=== PATIENT | male | born 1960 | race American Indian/Alaskan Native ===

== ENCOUNTER 2016-12-29 15:01 | Inpatient (IN) | payer MEDICARE, OTHER ==
[2016-12-29 15:01] VITALS: BMI 23.7
[2016-12-29] MEDS ORDERED: Sodium Chloride 0.9% 1,000 ML IV STA (15:16)
--- NOTE | 2016-12-29 15:16 | ED PDOC ---
HPI: Chest Pain Time Seen by Provider: 12/29/16 15:08 Chief Complaint (Nursing): Chest Pain History Per: Patient Onset/Duration Of Symptoms: Hrs (2) Current Symptoms Are (Timing): Still Present Severity: Mild Pain Scale Rating Of: 2 Quality: Aching Associated Symptoms: Dyspnea Exacerbating Factors: Deep Breathing Past Medical History Vital Signs: Last Vital Signs Temp 98.8 F 12/29/16 15:05 Pulse 103 H 12/29/16 15:05 Resp 16 12/29/16 15:05 BP 80/59 L 12/29/16 15:05 Pulse Ox 100 12/29/16 15:37 - Medical History PMH: Diabetes (type II), Gastritis, HTN, Hyperlipidemia, Pneumonia, End Stage Renal Disease, Chronic Kidney Disease (HD m/w/f) Denies: Arthritis, CHF, COPD, HIV, Hypercholesterolemia, Hypothyroidism, Kidney Stones, Rheumatoid Arthritis - Family History Family History: States: Unknown Family Hx - Home Medications Home Medications: Ambulatory Orders Medication Instructions Recorded Amlodipine Besylate [Norvasc] 10 mg PO DAILY #30 tablet 10/16/15 Aspirin [Ecotrin] 81 mg PO DAILY #30 tabec 10/16/15 Esomeprazole Magnesium [Nexium] 40 mg PO DAILY #0 capsule.dr 10/16/15 Insulin Aspart Prot/Insuln Asp 5 unit SC BID #0 vial 10/16/15 [Novolog Mix 70-30 Vial] Labetalol [Trandate] 100 mg PO BID #60 tab 10/16/15 Minoxidil 5 mg PO DAILY #30 tab 10/16/15 Sevelamer Carbonate [Renvela] 2,400 mg PO TID #60 tab 10/16/15 Simvastatin 20 mg PO HS #0 tablet 10/16/15 cloNIDine [Catapres] 0.3 mg PO TID #90 tab 10/16/15 hydrALAZINE [Apresoline] 50 mg PO TID #30 tab 10/16/15 Enalapril Maleate [Vasotec] 20 mg PO BID #0 tab 11/19/15 Acetaminophen with Codeine 1 tab PO QID PRN #15 tab 05/08/16 [Tylenol with Codeine No. 3 300 mg-30 mg] - Allergies Allergies/Adverse Reactions: Allergies Allergy/AdvReac Type Severity Reaction Status Date / Time azithromycin [From Zithromax] Allergy RASH Verified 12/31/16 07:12 tamsulosin [From Flomax] Allergy RASH Verified 12/29/16 15:05 Review of Systems ROS Statement: Except As Marked, All Systems Reviewed And Found Negative Cardiovascular: Positive for: Chest Pain Respiratory: Positive for: Shortness of Breath Physical Exam - Reviewed Nursing Documentation Reviewed: Yes Vital Signs Reviewed: Yes - Physical Exam Appears: Positive for: Non-toxic, No Acute Distress Head Exam: Positive for: ATRAUMATIC, NORMAL INSPECTION, NORMOCEPHALIC Skin: Positive for: Normal Color, Warm, DRY Eye Exam: Positive for: EOMI, Normal appearance, PERRL ENT: Positive for: Normal ENT Inspection Neck: Positive for: Normal, Painless ROM Cardiovascular/Chest: Positive for: Regular Rate, Rhythm Respiratory: Positive for: CNT, Normal Breath Sounds Gastrointestinal/Abdominal: Positive for: Normal Exam, Bowel Sounds, Soft Back: Positive for: Normal Inspection Extremity: Positive for: Normal ROM Neurologic/Psych: Positive for: Alert, Oriented - Laboratory Results Result Diagrams: 12/29/16 15:40 12/29/16 15:40 - ECG ECG Rhythm: Positive for: Sinus Rhythm, ST/T Changes (Inverted T waves V5-6, 1, AVL unchanged from 07/02/2016) O2 Sat by Pulse Oximetry: 100 Disposition - Clinical Impression Clinical Impression: ESRD (end stage renal disease), Chest pain - Patient ED Disposition Is Patient to be Admitted: Yes - Disposition Disposition Time: 18:04 Condition: FAIR - Pt Status Changed To: Hospital Disposition Of: Observation - POA Present On Arrival: None
[2016-12-29 15:45] LABS: BASO % 0.9 % (0.0-2.0); EOS % 0.8 % (0.0-4.0); HEMOGLOBIN 8.6 g/dL (12.0-18.0); LYMPH # 0.8 K/uL (1.0-4.3); LYMPH % 15.5 % (20.0-40.0); MEAN CELL VOLUME 72.1 fl (80.0-94.0); MEAN CORPUSCULAR HEMOGLOBIN 23.9 pg (27.0-31.0); MEAN CORPUSCULAR HGB CONC 33.2 g/dL (33.0-37.0); MEAN PLATELET VOLUME 7.9 fl (7.2-11.7); MONO # 0.8 K/uL (0.0-0.8); MONO % 13.9 % (0.0-10.0); NEUT # 3.7 K/uL (1.8-7.0); NEUT % 68.9 % (50.0-75.0); NRBC % 0.2 % (0.0-0.0); RBC 3.58 Mil/uL (4.40-5.90); RED CELL DISTRIBUTION WIDTH 17.1 % (11.5-14.5); WHITE BLOOD COUNT 5.4 K/uL (4.8-10.8)
[2016-12-29 16:07] LABS: ALB/GLOB RATIO 1.1 (1.0-2.1); ALBUMIN 4.4 g/dL (3.5-5.0); CALCIUM 9.7 mg/dL (8.4-10.2)
--- NOTE | 2016-12-29 16:07 | RAD ---
HISTORY: Cough. COMPARISON: 05/08/2016. FINDINGS: LUNGS: No active pulmonary disease. PLEURA: Stable pleural thickening, blunting of the costophrenic sulci bilaterally. CARDIOVASCULAR: Cardiomegaly. No evidence of acute, significant cardiovascular disease. OSSEOUS STRUCTURES: No significant abnormalities. VISUALIZED UPPER ABDOMEN: Normal. OTHER FINDINGS: None. IMPRESSION: No active disease. No significant interval change compared to the prior examination(s).
[2016-12-29 16:19] LABS: TROPONIN I 0.04 ng/mL (0.00-0.120)
[2016-12-29] MEDS ORDERED: LACTULOSE PO PRN (23:03)
[2016-12-30] MEDS ORDERED: HYDRALAZINE HCL PO SCH (01:00)
[2016-12-30] MEDS: Insulin Lispro (humaLOG) 100 Units/ml Inj SC SCH ×4 (06:37→21:51)
[2016-12-30] MEDS ORDERED: INSULIN ASPART 100 UNIT SQ SCH ×2 (07:30→09:00)
[2016-12-30] MEDS: Enoxaparin 30 mg Syringe SC SCH (08:39)
[2016-12-30] MEDS ORDERED: MENTHOL TD SCH (09:00)
[2016-12-30] MEDS ORDERED: RANOLAZINE PO SCH (09:00)
[2016-12-30] MEDS ORDERED: Insulin Lispro (humaLOG) 100 Units/ml Inj SC SCH (09:00)
--- NOTE | 2016-12-30 10:16 | CP.PCM.HP ---
Past Patient History - Infectious Disease Hx of Infectious Diseases: None - Tetanus Immunizations Tetanus Immunization: Unknown - Past Medical History & Family History Past Medical History?: Yes - Past Social History Smoking Status: Former Smoker - CARDIAC Hx Cardiac Disorders: Yes Hx Congestive Heart Failure: No Hx Hypercholesterolemia: No Hx Hypertension: Yes - PULMONARY Hx Respiratory Disorders: Yes Hx Chronic Obstructive Pulmonary Disease (COPD): No Hx Pneumonia: Yes - NEUROLOGICAL Hx Neurological Disorder: Yes HX Cerebrovascular Accident: Yes (june 2016) - HEENT Hx HEENT Problems: Yes - RENAL Hx Chronic Kidney Disease: Yes Hx Dialysis: Yes Type of Dialysis Access: right AV Date of Last Dialysis Treatment: 12/29/16 Hx Renal Failure: Yes - ENDOCRINE/METABOLIC Hx Endocrine Disorders: Yes Hx Diabetes Mellitus Type 1: Yes Hx Hypothyroidism: No - HEMATOLOGICAL/ONCOLOGICAL Hx Blood Disorders: No Hx Human Immunodeficiency Virus (HIV): No - INTEGUMENTARY Hx Dermatological Problems: No - MUSCULOSKELETAL/RHEUMATOLOGICAL Hx Musculoskeletal Disorders: No Hx Arthritis: No Hx Falls: No - GASTROINTESTINAL Hx Gastrointestinal Disorders: Yes Hx Gastritis: Yes - GENITOURINARY/GYNECOLOGICAL Hx Genitourinary Disorders: No - PSYCHIATRIC Hx Psychophysiologic Disorder: Yes Hx Schizophrenia: Yes Hx Substance Use: No - SURGICAL HISTORY Hx Surgeries: Yes Hx Eye Surgery: Yes (Glaucoma) Other/Comment: Bilateral eyes surgery for glaucoma and cataracts, right arm AV Shunt - ANESTHESIA Hx Anesthesia: Yes Hx Anesthesia Reactions: Yes (Vomiting) Hx Malignant Hyperthermia: No Has any member of the family had a problem w/ anesthesia?: No Meds Allergies/Adverse Reactions: Allergies Allergy/AdvReac Type Severity Reaction Status Date / Time azithromycin [From Zithromax] Allergy RASH Verified 12/29/16 19:41 tamsulosin [From Flomax] Allergy RASH Verified 12/29/16 15:05 Results - Vital Signs Recent Vital Signs: Last Vital Signs Temp 36.8 C 12/30/16 08:13 Pulse 77 12/30/16 09:00 Resp 20 12/30/16 08:13 BP 162/69 H 12/30/16 08:13 Pulse Ox 100 12/30/16 08:13 - Labs Result Diagrams: 12/29/16 15:40 12/29/16 15:40 Labs: Laboratory Results - last 24 hr 12/30/16 12/30/16 05:05 05:32 POC Glucose (mg/dL) 307 H Troponin I 0.9310 H*
--- NOTE | 2016-12-30 10:32 | CP.PCM.CON ---
History of Present Illness - History of Present Illness History of Present Illness: 56 y/o male from [facility], h/o HTN, DM,ESRD on HD X 6 years. H/o cerebral bleed 6 month ago underwent Cath 2 weeks ago at [facility], presented with chest pain Review of Systems - Constitutional Constitutional: Fatigue - Cardiovascular Cardiovascular: Irregular Heart Rhythm - Respiratory Respiratory: Cough Past Patient History - Infectious Disease Hx of Infectious Diseases: None - Tetanus Immunizations Tetanus Immunization: Unknown - Past Medical History & Family History Past Medical History?: Yes - Past Social History Smoking Status: Former Smoker - CARDIAC Hx Cardiac Disorders: Yes Hx Congestive Heart Failure: No Hx Hypercholesterolemia: No Hx Hypertension: Yes - PULMONARY Hx Respiratory Disorders: Yes Hx Chronic Obstructive Pulmonary Disease (COPD): No Hx Pneumonia: Yes - NEUROLOGICAL Hx Neurological Disorder: Yes HX Cerebrovascular Accident: Yes (june 2016) - HEENT Hx HEENT Problems: Yes - RENAL Hx Chronic Kidney Disease: Yes Hx Dialysis: Yes Type of Dialysis Access: right AV Date of Last Dialysis Treatment: 12/29/16 Hx Renal Failure: Yes - ENDOCRINE/METABOLIC Hx Endocrine Disorders: Yes Hx Diabetes Mellitus Type 1: Yes Hx Hypothyroidism: No - HEMATOLOGICAL/ONCOLOGICAL Hx Blood Disorders: No Hx Human Immunodeficiency Virus (HIV): No - INTEGUMENTARY Hx Dermatological Problems: No - MUSCULOSKELETAL/RHEUMATOLOGICAL Hx Musculoskeletal Disorders: No Hx Arthritis: No Hx Falls: No - GASTROINTESTINAL Hx Gastrointestinal Disorders: Yes Hx Gastritis: Yes - GENITOURINARY/GYNECOLOGICAL Hx Genitourinary Disorders: No - PSYCHIATRIC Hx Psychophysiologic Disorder: Yes Hx Schizophrenia: Yes Hx Substance Use: No - SURGICAL HISTORY Hx Surgeries: Yes Hx Eye Surgery: Yes (Glaucoma) Other/Comment: Bilateral eyes surgery for glaucoma and cataracts, right arm AV Shunt - ANESTHESIA Hx Anesthesia: Yes Hx Anesthesia Reactions: Yes (Vomiting) Hx Malignant Hyperthermia: No Has any member of the family had a problem w/ anesthesia?: No Meds Allergies/Adverse Reactions: Allergies Allergy/AdvReac Type Severity Reaction Status Date / Time azithromycin [From Zithromax] Allergy RASH Verified 12/29/16 19:41 tamsulosin [From Flomax] Allergy RASH Verified 12/29/16 15:05 - Medications Medications: Current Medications Acetaminophen (Tylenol 325mg Tab) 650 mg PO Q4 PRN PRN Reason: Fever >100.4 F Acetaminophen (Tylenol 325mg Tab) 650 mg PO Q4 PRN PRN Reason: Pain, Mild (1-3) Atorvastatin Calcium (Lipitor) 20 mg PO DAILY [facility] Last Admin: 12/30/16 08:38 Dose: 20 mg Bisacodyl (Dulcolax) 10 mg NE HS PRN PRN Reason: Constipation Calcitriol (Rocaltrol) 0.25 mcg PO DAILY [facility] Last Admin: 12/30/16 08:38 Dose: 0.25 mcg Clonidine HCl (Catapres-Tts3 0.3 Mg/24 Hr) 1 patch TD QWK [facility] Docusate Sodium (Colace) 200 mg PO HS [facility] Enoxaparin Sodium (Lovenox) 30 mg SC DAILY [facility] PRN Reason: Protocol Last Admin: 12/30/16 08:39 Dose: 30 mg Ferrous Sulfate (Feosol) 325 mg PO DAILY [facility] Last Admin: 12/30/16 08:38 Dose: 325 mg Hydralazine HCl (Apresoline) 100 mg PO Q8H [facility] Last Admin: 12/30/16 06:46 Dose: 100 mg Insulin Human Lispro (Humalog) 0 units SC TTS@TID [facility] Insulin Human Lispro (Humalog) 0 units SC [email or web address]@[facility] Last Admin: 12/30/16 06:37 Dose: 8 unit Insulin Human Lispro (Humalog) 0 units SC SUN@[facility] Isosorbide Mononitrate (Imdur) 30 mg PO DAILY [facility] Last Admin: 12/30/16 08:38 Dose: 30 mg Lactulose (Enulose) 20 gm PO DAILY PRN PRN Reason: Constipation Last Admin: 12/30/16 08:59 Dose: 20 gm Physical Exam - Constitutional Appears: Well - Head Exam Head Exam: NORMAL INSPECTION - Eye Exam Additional comments: legally blind - Neck Exam Neck exam: Positive for: Normal Inspection - Respiratory Exam Respiratory Exam: NORMAL BREATHING PATTERN - Cardiovascular Exam Cardiovascular Exam: REGULAR RHYTHM Additional comments: Grade3/6 ESM over LSB - Extremities Exam Extremities exam: Positive for: pedal edema Results - Vital Signs Recent Vital Signs: Last Vital Signs Temp 98.3 F 12/30/16 08:13 Pulse 77 12/30/16 09:00 Resp 20 12/30/16 08:13 BP 162/69 H 12/30/16 08:13 Pulse Ox 100 12/30/16 08:13 - Labs Result Diagrams: 12/29/16 15:40 12/29/16 15:40 Labs: Laboratory Results - last 24 hr 12/30/16 12/30/16 05:05 05:32 POC Glucose (mg/dL) 307 H Troponin I 0.9310 H* Assessment & Plan - Assessment and Plan (Free Text) Assessment: Chest pain R/O [place] ESRD 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 HTN cont Acetaminophen (Tylenol 325mg Tab) 650 mg PO Q4 PRN PRN Reason: Fever >100.4 F Acetaminophen (Tylenol 325mg Tab) 650 mg PO Q4 PRN PRN Reason: Pain, Mild (1-3) Atorvastatin Calcium (Lipitor) 20 mg PO DAILY [facility] Last Admin: 12/30/16 08:38 Dose: 20 mg Bisacodyl (Dulcolax) 10 mg NE HS PRN PRN Reason: Constipation Calcitriol (Rocaltrol) 0.25 mcg PO DAILY [facility] Last Admin: 12/30/16 08:38 Dose: 0.25 mcg Clonidine HCl (Catapres-Tts3 0.3 Mg/24 Hr) 1 patch TD QWK [facility] Docusate Sodium (Colace) 200 mg PO HS [facility] Enoxaparin Sodium (Lovenox) 30 mg SC DAILY [facility] PRN Reason: Protocol Last Admin: 12/30/16 08:39 Dose: 30 mg Ferrous Sulfate (Feosol) 325 mg PO DAILY [facility] Last Admin: 12/30/16 08:38 Dose: 325 mg Hydralazine HCl (Apresoline) 100 mg PO Q8H [facility] Last Admin: 12/30/16 06:46 Dose: 100 mg Insulin Human Lispro (Humalog) 0 units SC TTS@TID [facility] Insulin Human Lispro (Humalog) 0 units SC MWF@[facility] Last Admin: 12/30/16 06:37 Dose: 8 unit Insulin Human Lispro (Humalog) 0 units SC SUN@[facility] Isosorbide Mononitrate (Imdur) 30 mg PO DAILY [facility] Last Admin: 12/30/16 08:38 Dose: 30 mg Lactulose (Enulose) 20 gm PO DAILY PRN PRN Reason: Constipation Last Admin: 12/30/16 08:59 Dose: 20 gm Start ASA, Plavix, Lopressor Head CT scan, Echo, Cath report from Rick
--- NOTE | 2016-12-30 11:04 | CP.PCM.CON ---
History of Present Illness - History of Present Illness History of Present Illness: Patient who is 56 years of age known to our practice with end stage renal disease on maintenance hemodialysis 3 times a week TTS. He was having dialysis yesterday as outpatient when he developed atypical chest pain and he was sent to the emergency room for further evaluation. Patient known with multiple medical problem he used to have multiple admission he had in the past. Patient lives in [facility] PMH: Diabetes (type II), Gastritis, HTN, Hyperlipidemia, Pneumonia, End Stage Renal Disease, Chronic Kidney Disease (HD m/w/f) Denies: Arthritis, CHF, COPD, HIV, Hypercholesterolemia, Hypothyroidism, Kidney Stones, Rheumatoid Arthritis? I believe the patient is legally blind he can not see well Review of Systems - Constitutional Constitutional: Weakness. absent: Chills, Excessive Sweating - Cardiovascular Cardiovascular: Chest Pain. absent: Dyspnea, Leg Edema - Respiratory Respiratory: absent: Dyspnea, Hemoptysis - Gastrointestinal Gastrointestinal: absent: Abdominal Pain - Musculoskeletal Musculoskeletal: Muscle Weakness - Integumentary Integumentary: As Per HPI - Neurological Neurological: Abnormal Gait - Psychiatric Psychiatric: As Per HPI Past Patient History - Infectious Disease Hx of Infectious Diseases: None - Tetanus Immunizations Tetanus Immunization: Unknown - Past Medical History & Family History Past Medical History?: Yes - Past Social History Smoking Status: Former Smoker - CARDIAC Hx Cardiac Disorders: Yes Hx Congestive Heart Failure: No Hx Hypercholesterolemia: No Hx Hypertension: Yes - PULMONARY Hx Respiratory Disorders: Yes Hx Chronic Obstructive Pulmonary Disease (COPD): No Hx Pneumonia: Yes - NEUROLOGICAL Hx Neurological Disorder: Yes HX Cerebrovascular Accident: Yes (june 2016) - HEENT Hx HEENT Problems: Yes - RENAL Hx Chronic Kidney Disease: Yes Hx Dialysis: Yes Type of Dialysis Access: right AV Date of Last Dialysis Treatment: 12/29/16 Hx Renal Failure: Yes - ENDOCRINE/METABOLIC Hx Endocrine Disorders: Yes Hx Diabetes Mellitus Type 1: Yes Hx Hypothyroidism: No - HEMATOLOGICAL/ONCOLOGICAL Hx Blood Disorders: No Hx Human Immunodeficiency Virus (HIV): No - INTEGUMENTARY Hx Dermatological Problems: No - MUSCULOSKELETAL/RHEUMATOLOGICAL Hx Musculoskeletal Disorders: No Hx Arthritis: No Hx Falls: No - GASTROINTESTINAL Hx Gastrointestinal Disorders: Yes Hx Gastritis: Yes - GENITOURINARY/GYNECOLOGICAL Hx Genitourinary Disorders: No - PSYCHIATRIC Hx Psychophysiologic Disorder: Yes Hx Schizophrenia: Yes Hx Substance Use: No - SURGICAL HISTORY Hx Surgeries: Yes Hx Eye Surgery: Yes (Glaucoma) Other/Comment: Bilateral eyes surgery for glaucoma and cataracts, right arm AV Shunt - ANESTHESIA Hx Anesthesia: Yes Hx Anesthesia Reactions: Yes (Vomiting) Hx Malignant Hyperthermia: No Has any member of the family had a problem w/ anesthesia?: No Meds Allergies/Adverse Reactions: Allergies Allergy/AdvReac Type Severity Reaction Status Date / Time azithromycin [From Zithromax] Allergy RASH Verified 12/29/16 19:41 tamsulosin [From Flomax] Allergy RASH Verified 12/29/16 15:05 - Medications Medications: Current Medications Acetaminophen (Tylenol 325mg Tab) 650 mg PO Q4 PRN PRN Reason: Fever >100.4 F Acetaminophen (Tylenol 325mg Tab) 650 mg PO Q4 PRN PRN Reason: Pain, Mild (1-3) Aspirin (Aspirin Chewable) 81 mg PO DAILY [facility] Atorvastatin Calcium (Lipitor) 20 mg PO DAILY [facility] Last Admin: 12/30/16 08:38 Dose: 20 mg Bisacodyl (Dulcolax) 10 mg IN HS PRN PRN Reason: Constipation Calcitriol (Rocaltrol) 0.25 mcg PO DAILY [facility] Last Admin: 12/30/16 08:38 Dose: 0.25 mcg Clonidine HCl (Catapres-Tts3 0.3 Mg/24 Hr) 1 patch TD QWK [facility] Clopidogrel Bisulfate (Plavix) 75 mg PO DAILY [facility] Docusate Sodium (Colace) 200 mg PO HS [facility] Enoxaparin Sodium (Lovenox) 30 mg SC DAILY [facility] PRN Reason: Protocol Last Admin: 12/30/16 08:39 Dose: 30 mg Ferrous Sulfate (Feosol) 325 mg PO DAILY [facility] Last Admin: 12/30/16 08:38 Dose: 325 mg Hydralazine HCl (Apresoline) 100 mg PO Q8H [facility] Last Admin: 12/30/16 06:46 Dose: 100 mg Insulin Human Lispro (Humalog) 0 units SC TTS@TID [facility] Insulin Human Lispro (Humalog) 0 units SC MWF@[facility] Last Admin: 12/30/16 06:37 Dose: 8 unit Insulin Human Lispro (Humalog) 0 units SC SUN@[facility] Isosorbide Mononitrate (Imdur) 30 mg PO DAILY [facility] Last Admin: 12/30/16 08:38 Dose: 30 mg Lactulose (Enulose) 20 gm PO DAILY PRN PRN Reason: Constipation Last Admin: 12/30/16 08:59 Dose: 20 gm Metoprolol Tartrate (Lopressor) 12.5 mg PO Q12 [facility] Physical Exam - Constitutional Appears: No Acute Distress - ENT Exam ENT Exam: Mucous Membranes Moist - Respiratory Exam Respiratory Exam: NORMAL BREATHING PATTERN. absent: Chest Wall Tenderness - Cardiovascular Exam Cardiovascular Exam: Diastolic murmur. absent: JVD, Rubs - GI/Abdominal Exam GI & Abdominal Exam: Normal Bowel Sounds - Extremities Exam Extremities exam: Negative for: calf tenderness - Back Exam Back exam: absent: CVA tenderness (L), CVA tenderness (R) - Neurological Exam Neurological exam: Alert Results - Vital Signs Recent Vital Signs: Last Vital Signs Temp 98.3 F 12/30/16 08:13 Pulse 77 12/30/16 09:00 Resp 20 12/30/16 08:13 BP 162/69 H 12/30/16 08:13 Pulse Ox 100 12/30/16 08:13 - Labs Result Diagrams: 12/29/16 15:40 12/29/16 15:40 Labs: Laboratory Results - last 24 hr 12/30/16 12/30/16 05:05 05:32 POC Glucose (mg/dL) 307 H Troponin I 0.9310 H* Assessment & Plan (1) Chest pain Status: Acute (2) ESRD (end stage renal disease) Assessment and Plan: Patient with end stage renal disease on maintenance hemodialysis admitted with chest pain Patient is being evaluated by the cardiology and the primary team Patient appeared to be comfortable at the present and no chest pain no Patient scheduled for hemodialysis for tomorrow Continue monitoring continue hemodialysis as scheduled TTS Status: Chronic Priority: High
--- NOTE | 2016-12-30 13:27 | CT ---
PROCEDURE: CT HEAD WITHOUT CONTRAST. HISTORY: CVA COMPARISON: 05/01/2016. TECHNIQUE: Axial computed tomography images were obtained through the head/brain without intravenous contrast. Radiation dose: Total exam DLP = 849.64 mGy-cm. This CT exam was performed using one or more of the following dose reduction techniques: Automated exposure control, adjustment of the mA and/or kV according to patient size, and/or use of iterative reconstruction technique. FINDINGS: HEMORRHAGE: There is a curvilinear density in the left mckenna radiata extending to the posterior insular cortex. There is also subtle focal high attenuation in the posterior insula. BRAIN: There are mild chronic microangiopathic changes. There is no mass, mass effect or abnormal extra-axial fluid collection. There is no territorial infarction.There are coarse atherosclerotic calcifications in the cavernous carotid arteries. VENTRICLES: There is mild age-related global parenchymal volume loss and proportionate enlargement of the ventricles and cortical sulci. CALVARIUM: The skull base and calvarium are normal. PARANASAL SINUSES: Predominantly clear. MASTOID AIR CELLS: Predominantly clear. OTHER FINDINGS: None. IMPRESSION: Curvilinear density in the left mckenna radiata extending to the posterior insular cortex could represent a developmental venous and normally with slow blood flow however cortical venous thrombosis cannot be entirely excluded. Subtle increased density in the left insular cortex could represent minimal hemorrhage. An MRI of the brain without and with intravenous contrast is recommended for further evaluation.
--- NOTE | 2016-12-30 16:55 | CARD ---
APPROVED REPORT EXAM: Two-dimensional and M-mode echocardiogram with Doppler and color Doppler. Other Information Quality : ExcellentRhythm : NSR INDICATION Cardiac Disease: CAD 2D DIMENSIONS IVSd1.79 (0.7-1.1cm)LVDd4.40 (3.9-5.9cm) LVOT Diameter1.87 (1.8-2.4cm)PWd1.70 (0.7-1.1cm) IVSs2.06 (0.8-1.2cm)LVDs2.06 (2.5-4.0cm) FS (%) 53.1 %PWs3.10 (0.8-1.2cm) M-Mode DIMENSIONS Left Atrium (MM)4.82 (2.5-4.0cm)IVSd2.32 (0.7-1.1cm) Aortic Root3.24 (2.2-3.7cm)LVDd4.41 (4.0-5.6cm) Aortic Cusp Exc.2.41 (1.5-2.0cm)PWd1.94 (0.7-1.1cm) IVSs2.21 cmFS (%) 50 % LVDs2.21 (2.0-3.8cm)PWs2.88 cm Mitral Valve MV E Bltocolw059.9cm/sMV DECEL FOHV300qyDQ A Eqfpejde027.1cm/s MV NNV37irF/A ratio0.9MVA (PHT)3.59cm2 TDI Lateral E' Peak V5.21cm/sMedial E' Peak V5.05cm/sE/Lateral E'20.3 E/Medial E'21.0 Pulmonary Valve PV Peak Noifyqic726.1cm/s LEFT VENTRICLE The left ventricle is normal size. There is severe concentric left ventricular hypertrophy. The left ventricular function is normal. The left ventricular ejection fraction is 60- 65% There is normal LV segmental wall motion. Transmitral Doppler flow pattern is Grade II-pseudonormal filling dynamics. Tissue Doppler imaging reveals abnormal left ventricular diastolic dysfunction. No left ventricle thrombus noted on this study. There is no ventricular septal defect visualized. There is no left ventricular aneurysm. There is no mass noted in the left ventricle. RIGHT VENTRICLE The right ventricle is normal size. There is normal right ventricular wall thickness. The right ventricular systolic function is normal. ATRIA The left atrium is mildly dilated. The right atrium is mildly dilated. The interatrial septum is intact with no evidence for an atrial septal defect. AORTIC VALVE The aortic valve is normal in structure and function. No aortic regurgitation is present. There is no aortic valvular stenosis. There is no aortic valvular vegetation. MITRAL VALVE The mitral valve is normal in structure and function. There is no evidence of mitral valve prolapse. There is no mitral valve stenosis. There is no mitral valve regurgitation noted. TRICUSPID VALVE The tricuspid valve is normal in structure and function. There is no tricuspid valve regurgitation noted. There is no tricuspid valve prolapse or vegetation. There is no tricuspid valve stenosis. PULMONIC VALVE The pulmonary valve is normal in structure and function. There is no pulmonic valvular regurgitation. There is no pulmonic valvular stenosis. GREAT VESSELS The aortic root is normal in size. The ascending aorta is normal in size. The IVC is normal in size and collapses >50% with inspiration. PERICARDIAL EFFUSION The pericardium appears normal. There is no pleural effusion. <Conclusion> Normal LV Systolic Function Severe Concentric LVH Mild LVOT resting gradient 2.5m/s at rest Biatrial Enlargement No systolic anterior motion of the mitral valve ( STACIA)
--- NOTE | 2016-12-30 17:10 | CARD ---
APPROVED REPORT EKG Measurement Heart [id number] <Conclusion> Normal sinus rhythm Possible Left atrial enlargement Left ventricular hypertrophy with repolarization abnormality Abnormal ECG
--- NOTE | 2016-12-30 17:21 | CARD ---
APPROVED REPORT EKG Measurement Heart [id number] SD [id number] [id number] <Conclusion> Normal sinus rhythm Biatrial enlargement Left ventricular hypertrophy with repolarization abnormality Prolonged QT Abnormal ECG
[2016-12-31 07:28] LABS: HEMOGLOBIN 7.9 g/dL (12.0-18.0); MEAN CELL VOLUME 73.7 fl (80.0-94.0); MEAN CORPUSCULAR HEMOGLOBIN 23.4 pg (27.0-31.0); MEAN CORPUSCULAR HGB CONC 31.8 g/dL (33.0-37.0); RBC 3.37 Mil/uL (4.40-5.90); RED CELL DISTRIBUTION WIDTH 17.2 % (11.5-14.5); WHITE BLOOD COUNT 4.6 K/uL (4.8-10.8)
[2016-12-31 07:35] LABS: ALB/GLOB RATIO 1.3 (1.0-2.1); ALBUMIN 4.1 g/dL (3.5-5.0); CALCIUM 9.1 mg/dL (8.4-10.2)
[2016-12-31] MEDS: Enoxaparin 30 mg Syringe SC SCH (09:00)
[2016-12-31] MEDS: Insulin Lispro (humaLOG) 100 Units/ml Inj SC SCH ×3 (09:30→20:47)
--- NOTE | 2016-12-31 22:23 | CP.PCM.PN ---
Subjective - Date & Time of Evaluation Date of Evaluation: 12/31/16 Time of Evaluation: 16:30 - Subjective Subjective: Follow up Nephrology Consultation Note Assessment: Stable Diabetic chronic Kidney Disease (E11.22) Hypertensive Chronic Kidney Disease (I12.0) End stage renal disease (N18.6) dependence on hemodialysis (Z99.2) (TTS/MWF) via __ Anemia (D64.9), Hyperphosphatemia (E83.39), Secondary Hyperparathyroidism (E21.1 ), HTN (I12.0) Plan: Will plan for HD today as ordered. Continue with Nephrovite 1 tab/day. PRBC as needed for anemia. On KAYCE as epogen 4600 unit with HD as outpt, will increase the dose, last Hb 7-8 range. his latest Ferritin 1600 hence d/c iron Continue with phos binders home dose, last phos level 5.1 as outpt Continue with calcitriol with dialysis. Last PTH level 506 BP control with meds as ordered. Patient not on RAAS vickie, will add losartan Glycemic control, Dialysis consistent diet Further work up/management as per primary team Dose meds/antibiotics (if needed) for ESRD status. Avoid fleets enema/magnesium based laxatives. cardiology following consider neuro eval for his abnormal CT scan brain findings. In case if he needs MRI with contrast, will need dialysis daily x 3 days to remove the gadolinium as much as possible to reduce the risk of nephrogenic systemic fibrosis. It would be best to avoid the gadolinium but of course will need risk/ benefit assessments and d/w patient. Thanks for allowing me to participate in care of your patient. Will follow patient with you. Please call if any Qs Dr Chu Rios Office: [phone] Subjective: Noted events overnight. Patients feels okay. Denies palpitation, shortness of breath, leg swelling. No urinary complaints. c/o Rt side chest pain Physical Examination: General Appearance: Comfortable, in no acute respiratory distress, co- operative. he is visually impaired Vitals reviewed and noted as below Lungs: Normal respiratory rate/effort. Breath sounds bilateral equal and clear Heart: Normal rate. s1s2 normal. No rub or gallop. Extremities: no edema. Neurological: Patient is alert, awake and oriented to person, place and time. No focal deficit. Strength bilateral appropriate and equal Skin: Warm and dry. Normal turgor. No rash. Palpitation: Normal elasticity for age Abdomen: Abdomen is soft. Bowel sounds +. There is no abdominal tenderness, no guarding/rigidity or organomegaly : kidney or bladder not palpable Access: AVF Labs/imaging reviewed. Past medical history, past surgical history, family history, social history, allergy reviewed Objective - Vital Signs/Intake and Output Vital Signs (last 24 hours): Temp Pulse Resp BP Pulse Ox 98.1 F 71 18 159/80 H 100 12/31/16 17:00 12/31/16 20:49 12/31/16 17:00 12/31/16 20:49 12/31/16 17:00 Intake and Output: 12/31/16 01/01/17 18:59 06:59 Intake Total 500 Balance 500 - Medications Medications: Current Medications Acetaminophen (Tylenol 325mg Tab) 650 mg PO Q4 PRN PRN Reason: Fever >100.4 F Acetaminophen (Tylenol 325mg Tab) 650 mg PO Q4 PRN PRN Reason: Pain, Mild (1-3) Aspirin (Aspirin Chewable) 81 mg PO DAILY [facility] Last Admin: 12/31/16 09:00 Dose: Not Given Atorvastatin Calcium (Lipitor) 20 mg PO DAILY [facility] Last Admin: 12/31/16 08:27 Dose: 20 mg Bisacodyl (Dulcolax) 10 mg OK HS PRN PRN Reason: Constipation Last Admin: 12/31/16 02:30 Dose: 10 mg Calcitriol (Rocaltrol) 0.25 mcg PO DAILY [facility] Last Admin: 12/31/16 08:27 Dose: 0.25 mcg Clonidine HCl (Catapres-Tts3 0.3 Mg/24 Hr) 1 patch TD QWK [facility] Clopidogrel Bisulfate (Plavix) 75 mg PO DAILY [facility] Last Admin: 12/31/16 12:00 Dose: 75 mg Docusate Sodium (Colace) 200 mg PO HS [facility] Last Admin: 12/30/16 21:13 Dose: 200 mg Enoxaparin Sodium (Lovenox) 30 mg SC DAILY [facility] PRN Reason: Protocol Last Admin: 12/31/16 09:00 Dose: Not Given Ferrous Sulfate (Feosol) 325 mg PO DAILY [facility] Last Admin: 12/31/16 08:26 Dose: 325 mg Hydralazine HCl (Apresoline) 100 mg PO Q8H [facility] Last Admin: 12/31/16 20:49 Dose: 100 mg Insulin Human Lispro (Humalog) 0 units SC TTS@TID [facility] Last Admin: 12/31/16 20:47 Dose: 2 units Insulin Human Lispro (Humalog) 0 units SC MWF@[facility] Last Admin: 12/30/16 21:51 Dose: 4 unit Insulin Human Lispro (Humalog) 0 units SC SUN@[facility] Isosorbide Mononitrate (Imdur) 30 mg PO DAILY [facility] Last Admin: 12/31/16 08:27 Dose: 30 mg Lactulose (Enulose) 20 gm PO DAILY PRN PRN Reason: Constipation Last Admin: 12/30/16 08:59 Dose: 20 gm Metoprolol Tartrate (Lopressor) 12.5 mg PO Q12 [facility] Last Admin: 12/31/16 09:10 Dose: 12.5 mg - Labs Labs: 12/31/16 05:30 12/31/16 05:30
[2017-01-01] MEDS: Insulin Lispro (humaLOG) 100 Units/ml Inj SC SCH ×4 (08:03→22:00)
[2017-01-01] MEDS ORDERED: Sodium Chloride 0.9% 250 ML IV ONE (08:18)
[2017-01-01] MEDS ORDERED: Iodixanol 320 MG/ML 100 ML BOTTLE IV ONE (08:19)
[2017-01-01 10:32] LABS: EOS # 0.1 K/uL (0.0-0.7); EOS % 2.5 % (0.0-4.0); LYMPH # 1.2 K/uL (1.0-4.3); LYMPH % 23.8 % (20.0-40.0); MEAN CORPUSCULAR HEMOGLOBIN 25.2 pg (27.0-31.0); MEAN CORPUSCULAR HGB CONC 32.8 g/dL (33.0-37.0); MEAN PLATELET VOLUME 7.6 fl (7.2-11.7); MONO # 0.7 K/uL (0.0-0.8); NEUT # 2.9 K/uL (1.8-7.0); NEUT % 58.7 % (50.0-75.0); RBC 4.07 Mil/uL (4.40-5.90); WHITE BLOOD COUNT 4.9 K/uL (4.8-10.8)
[2017-01-01 10:36] LABS: HEMOGLOBIN 10.3 g/dL (12.0-18.0)
[2017-01-01 10:37] LABS: MEAN CELL VOLUME 76.9 fl (80.0-94.0)
--- NOTE | 2017-01-01 10:52 | CT ---
PROCEDURE: CT Chest with contrast (Pulmonary Angiogram) HISTORY: R/O PE COMPARISON: Correlation made with prior chest radiograph dated 12/29/[address] scan abdomen pelvis 05/08/2016 which imaged both lung bases. TECHNIQUE: Axial computed tomography images were obtained of the chest in the pulmonary arterial phase of enhancement. Coronal and sagittal reformatted images were created and reviewed. Intravenous contrast dose: 95 cc of of Visipaque 320 Radiation dose: Total exam DLP = 434.12 mGy-cm. This CT exam was performed using one or more of the following dose reduction techniques: Automated exposure control, adjustment of the mA and/or kV according to patient size, and/or use of iterative reconstruction technique. FINDINGS: PULMONARY ARTERIES: The visualized pulmonary trunk, right and left main, lobar, segmental and subsegmental branches of the pulmonary arteries are well opacified with no definitive filling defects seen to suggest acute pulmonary embolus. Pulmonary trunk is dilated measuring approximately 4.13 cm in transverse dimension; rule out pulmonary arterial hypertension. . AORTA: The aorta exhibits normal caliber ; the ascending thoracic aorta measures approximately 3.24 cm and descending thoracic aorta measures approximately 2.6 cm. No evidence of dissection. LUNGS: Evaluation of the lung parenchyma reveals no evidence of infiltrate mass or nodule so far as can be seen. Minor linear bibasilar atelectasis and/or scarring. PLEURAL SPACES: Unremarkable. No effusion or pneuomothorax. HEART: Mild cardiomegaly with left mild left ventricular hypertrophy. No significant pericardial effusion. LYMPH NODES: Few small nonspecific mediastinal and hilar lymph nodes are present. BONES, CHEST WALL: The visualized thoracic vertebral body segments are intact without evidence of acute compression fractures nor retropulsed fragments. OTHER FINDINGS: Tiny hiatal hernia. . Mild changes of gynecomastia. Re- demonstrated are small low-attenuation foci superior pole left kidney. There may also be a tiny focus low attenuation upper pole right kidney. Changes may represent renal cysts. IMPRESSION: No evidence of acute central pulmonary embolus. There is a dilated pulmonary trunk ; rule out underlying pulmonary arterial hypertension. Mild bibasilar atelectasis/scarring changes. Cardiomegaly with mild left ventricular hypertrophy. Mild changes of gynecomastia.
[2017-01-01] MEDS: Multivitamin Vitamin B Complex (Nephro-Vite) Tab PO SCH (10:57)
--- NOTE | 2017-01-01 14:39 | CP.PCM.PN ---
Subjective - Date & Time of Evaluation Date of Evaluation: 01/01/17 Time of Evaluation: 14:37 - Subjective Subjective: C/O chest pain Underwent HD yesterday + PRBCs transfusion Objective - Vital Signs/Intake and Output Vital Signs (last 24 hours): Temp Pulse Resp BP Pulse Ox 98.1 F 71 18 142/66 100 01/01/17 12:07 01/01/17 12:07 01/01/17 12:07 01/01/17 12:07 01/01/17 12:07 - Medications Medications: Current Medications Acetaminophen (Tylenol 325mg Tab) 650 mg PO Q4 PRN PRN Reason: Fever >100.4 F Acetaminophen (Tylenol 325mg Tab) 650 mg PO Q4 PRN PRN Reason: Pain, Mild (1-3) Last Admin: 12/31/16 23:11 Dose: 650 mg Amlodipine Besylate (Norvasc) 10 mg PO DAILY [facility] Last Admin: 01/01/17 10:57 Dose: 10 mg Aspirin (Ecotrin) 81 mg PO DAILY [facility] Last Admin: 01/01/17 10:55 Dose: 81 mg Atorvastatin Calcium (Lipitor) 20 mg PO DAILY [facility] Last Admin: 01/01/17 10:56 Dose: 20 mg Bisacodyl (Dulcolax) 10 mg OR HS PRN PRN Reason: Constipation Last Admin: 12/31/16 02:30 Dose: 10 mg Calcitriol (Rocaltrol) 0.25 mcg PO DAILY [facility] Last Admin: 01/01/17 10:58 Dose: 0.25 mcg Clonidine HCl (Catapres-Tts3 0.3 Mg/24 Hr) 1 patch TD QWK [facility] Clopidogrel Bisulfate (Plavix) 75 mg PO DAILY [facility] Last Admin: 01/01/17 10:58 Dose: 75 mg Docusate Sodium (Colace) 200 mg PO HS [facility] Last Admin: 12/31/16 23:17 Dose: Not Given Epoetin Chad (Procrit) 8,000 unit IV TTS [facility] Hydralazine HCl (Apresoline) 100 mg PO Q8H [facility] Last Admin: 01/01/17 07:54 Dose: 100 mg Insulin Human Lispro (Humalog) 0 units SC TTS@TID [facility] Last Admin: 12/31/16 20:47 Dose: 2 units Insulin Human Lispro (Humalog) 0 units SC MWF@[facility] Last Admin: 12/30/16 21:51 Dose: 4 unit Insulin Human Lispro (Humalog) 0 units SC SUN@[facility] Last Admin: 01/01/17 12:45 Dose: 6 units Isosorbide Mononitrate (Imdur) 30 mg PO DAILY [facility] Last Admin: 01/01/17 09:54 Dose: Not Given Lactulose (Enulose) 20 gm PO DAILY PRN PRN Reason: Constipation Last Admin: 12/30/16 08:59 Dose: 20 gm Losartan Potassium (Cozaar) 50 mg PO DAILY [facility] Last Admin: 01/01/17 09:53 Dose: Not Given Metoprolol Tartrate (Lopressor) 25 mg PO Q12 [facility] Last Admin: 01/01/17 11:01 Dose: Not Given Vitamin B Complex/Vit C/Folic Acid (Nephro-Mary Kate) 1 tab PO DAILY [facility] Last Admin: 01/01/17 10:57 Dose: 1 tab - Labs Labs: 01/01/17 09:30 12/31/16 05:30 - Head Exam Head Exam: NORMOCEPHALIC - Eye Exam Eye Exam: Normal appearance Additional comments: Legally blind - Neck Exam Neck Exam: Full ROM, Normal Inspection. absent: Lymphadenopathy - Respiratory Exam Respiratory Exam: NORMAL BREATHING PATTERN - GI/Abdominal Exam GI & Abdominal Exam: Normal Bowel Sounds - Extremities Exam Extremities Exam: Normal Inspection Assessment and Plan - Assessment and Plan (Free Text) Assessment: C/P Borderline trops, normal coronaries on recent cath CT angio , no PE , dilated pulmonary trunk Hypertensive CM ESRD Plan: Cont. Acetaminophen (Tylenol 325mg Tab) 650 mg PO Q4 PRN PRN Reason: Fever >100.4 F Acetaminophen (Tylenol 325mg Tab) 650 mg PO Q4 PRN PRN Reason: Pain, Mild (1-3) Last Admin: 12/31/16 23:11 Dose: 650 mg Amlodipine Besylate (Norvasc) 10 mg PO DAILY [facility] Last Admin: 01/01/17 10:57 Dose: 10 mg Aspirin (Ecotrin) 81 mg PO DAILY [facility] Last Admin: 01/01/17 10:55 Dose: 81 mg Atorvastatin Calcium (Lipitor) 20 mg PO DAILY [facility] Last Admin: 01/01/17 10:56 Dose: 20 mg Bisacodyl (Dulcolax) 10 mg OR HS PRN PRN Reason: Constipation Last Admin: 12/31/16 02:30 Dose: 10 mg Calcitriol (Rocaltrol) 0.25 mcg PO DAILY [facility] Last Admin: 01/01/17 10:58 Dose: 0.25 mcg Clonidine HCl (Catapres-Tts3 0.3 Mg/24 Hr) 1 patch TD QWK [facility] Clopidogrel Bisulfate (Plavix) 75 mg PO DAILY [facility] Last Admin: 01/01/17 10:58 Dose: 75 mg Docusate Sodium (Colace) 200 mg PO HS [facility] Last Admin: 12/31/16 23:17 Dose: Not Given Epoetin Chad (Procrit) 8,000 unit IV TTS [facility] Hydralazine HCl (Apresoline) 100 mg PO Q8H [facility] Last Admin: 01/01/17 07:54 Dose: 100 mg Insulin Human Lispro (Humalog) 0 units SC TTS@TID [facility] Last Admin: 12/31/16 20:47 Dose: 2 units Insulin Human Lispro (Humalog) 0 units SC MWF@[facility] Last Admin: 12/30/16 21:51 Dose: 4 unit Insulin Human Lispro (Humalog) 0 units SC SUN@[facility] Last Admin: 01/01/17 12:45 Dose: 6 units Isosorbide Mononitrate (Imdur) 30 mg PO DAILY [facility] Last Admin: 01/01/17 09:54 Dose: Not Given Lactulose (Enulose) 20 gm PO DAILY PRN PRN Reason: Constipation Last Admin: 12/30/16 08:59 Dose: 20 gm Losartan Potassium (Cozaar) 50 mg PO DAILY [facility] Last Admin: 01/01/17 09:53 Dose: Not Given Metoprolol Tartrate (Lopressor) 25 mg PO Q12 [facility] Last Admin: 01/01/17 11:01 Dose: Not Given Vitamin B Complex/Vit C/Folic Acid (Nephro-Mary Kate) 1 tab PO DAILY [facility] Last Admin: 01/01/17 10:57 Dose: 1 tab
--- NOTE | 2017-01-01 15:13 | CP.PCM.PN ---
Subjective - Date & Time of Evaluation Date of Evaluation: 01/01/17 Time of Evaluation: 15:10 - Subjective Subjective: Follow up Nephrology Consultation Note Assessment: Stable Diabetic chronic Kidney Disease (E11.22) Hypertensive Chronic Kidney Disease (I12.0) End stage renal disease (N18.6) dependence on hemodialysis (Z99.2) (TTS) via AVF Anemia (D64.9), Hyperphosphatemia (E83.39), Secondary Hyperparathyroidism (E21.1 ), HTN (I12.0) chest pain Plan: Will plan for HD monday as ordered. No acute need today Continue with Nephrovite 1 tab/day. PRBC as needed for anemia. On KAYCE as epogen 4600 unit with HD as outpt, will increase the dose, last Hb 9 s/p 2 unit PRBC. his latest Ferritin 1600 hence d/ c iron Continue with phos binders home dose, last phos level 5.1 as outpt Continue with calcitriol with dialysis. Last PTH level 506 BP control with meds as ordered. Patient not on RAAS vickie, added losartan, increased hydralazine Glycemic control, Dialysis consistent diet Further work up/management as per primary team Dose meds/antibiotics (if needed) for ESRD status. Avoid fleets enema/magnesium based laxatives. cardiology following consider neuro eval for his abnormal CT scan brain findings. In case if he needs MRI with contrast, will need dialysis daily x 3 days to remove the gadolinium as much as possible to reduce the risk of nephrogenic systemic fibrosis. It would be best to avoid the gadolinium but of course will need risk/ benefit assessments and d/w patient. Thanks for allowing me to participate in care of your patient. Will follow patient with you. Please call if any Qs Dr Chu Rios Office: [phone] Subjective: Noted events overnight. Patients feels okay. Denies palpitation, shortness of breath, leg swelling. No urinary complaints. c/o Rt side chest pain , better Physical Examination: General Appearance: Comfortable, in no acute respiratory distress, co- operative. he is visually impaired Vitals reviewed and noted as below Lungs: Normal respiratory rate/effort. Breath sounds bilateral equal and clear Heart: Normal rate. s1s2 normal. No rub or gallop. Extremities: no edema. Neurological: Patient is alert, awake and oriented to person, place and time. No focal deficit. Strength bilateral appropriate and equal Skin: Warm and dry. Normal turgor. No rash. Palpitation: Normal elasticity for age Abdomen: Abdomen is soft. Bowel sounds +. There is no abdominal tenderness, no guarding/rigidity or organomegaly : kidney or bladder not palpable Access: AVF Labs/imaging reviewed. Past medical history, past surgical history, family history, social history, allergy reviewed Objective - Vital Signs/Intake and Output Vital Signs (last 24 hours): Temp Pulse Resp BP Pulse Ox 98.1 F 71 18 142/66 100 01/01/17 12:07 01/01/17 12:01/01/17 12:01/01/17 12:01/01/17 12:07 - Medications Medications: Current Medications Acetaminophen (Tylenol 325mg Tab) 650 mg PO Q4 PRN PRN Reason: Fever >100.4 F Acetaminophen (Tylenol 325mg Tab) 650 mg PO Q4 PRN PRN Reason: Pain, Mild (1-3) Last Admin: 12/31/16 23:11 Dose: 650 mg Amlodipine Besylate (Norvasc) 10 mg PO DAILY [facility] Last Admin: 01/01/17 10:57 Dose: 10 mg Aspirin (Ecotrin) 81 mg PO DAILY [facility] Last Admin: 01/01/17 10:55 Dose: 81 mg Atorvastatin Calcium (Lipitor) 20 mg PO DAILY [facility] Last Admin: 01/01/17 10:56 Dose: 20 mg Bisacodyl (Dulcolax) 10 mg PA HS PRN PRN Reason: Constipation Last Admin: 12/31/16 02:30 Dose: 10 mg Calcitriol (Rocaltrol) 0.25 mcg PO DAILY [facility] Last Admin: 01/01/17 10:58 Dose: 0.25 mcg Clonidine HCl (Catapres-Tts3 0.3 Mg/24 Hr) 1 patch TD QWK [facility] Clopidogrel Bisulfate (Plavix) 75 mg PO DAILY [facility] Last Admin: 01/01/17 10:58 Dose: 75 mg Docusate Sodium (Colace) 200 mg PO HS [facility] Last Admin: 12/31/16 23:17 Dose: Not Given Epoetin Chad (Procrit) 8,000 unit IV TTS [facility] Hydralazine HCl (Apresoline) 100 mg PO Q8H [facility] Last Admin: 01/01/17 07:54 Dose: 100 mg Insulin Human Lispro (Humalog) 0 units SC TTS@TID [facility] Last Admin: 12/31/16 20:47 Dose: 2 units Insulin Human Lispro (Humalog) 0 units SC MWF@[facility] Last Admin: 12/30/16 21:51 Dose: 4 unit Insulin Human Lispro (Humalog) 0 units SC SUN@[email or web address] Last Admin: 01/01/17 12:45 Dose: 6 units Isosorbide Mononitrate (Imdur) 30 mg PO DAILY [facility] Last Admin: 01/01/17 09:54 Dose: Not Given Lactulose (Enulose) 20 gm PO DAILY PRN PRN Reason: Constipation Last Admin: 12/30/16 08:59 Dose: 20 gm Losartan Potassium (Cozaar) 50 mg PO DAILY [facility] Last Admin: 01/01/17 09:53 Dose: Not Given Metoprolol Tartrate (Lopressor) 25 mg PO Q12 [facility] Last Admin: 01/01/17 11:01 Dose: Not Given Vitamin B Complex/Vit C/Folic Acid (Nephro-Mary Kate) 1 tab PO DAILY [facility] Last Admin: 01/01/17 10:57 Dose: 1 tab - Labs Labs: 01/01/17 09:30 12/31/16 05:30
[2017-01-01] MEDS ORDERED: Oxycodone/Acetaminophen 5/325 mg Tab PO PRN (15:15)
--- NOTE | 2017-01-02 08:10 | PQF ANEMIA ---
This form is a permanent part of the medical record 01/02/17 Dr. Rios, Would you please clarify the type of anemia if known under physician response section. Documentation of anemia. H&H .6.8. Treated with ferrous sulfate and transfusion of PRBC. History of ESRD with dialysis. Clarification of your documentation is requested to better reflect the severity of illness and intensity of treatment of your patient. Indicators present [x] Anemia [] Drop in H&H from []___ to []___ [] Hypotension [] GI Bleed [x] Transfusion(s) [] Acute bleed other sites [] Tachycardia [] Surgical Procedure Blood Loss (expected not a complication) Other:[] Location in the medical record that reflects the above clinical findings: [] Treatment Provided: [x] PHYSICIAN'S RESPONSE Based on your medical judgment of the clinical indicators outlined above, are you treating this patient for a known or suspected: [] Acute blood loss anemia [] Chronic blood loss anemia [] Acute on Chronic blood loss anemia [] Anemia due to malignancy [] Anemia due to chemotherapy or radiation therapy [] Anemia due to Chronic Kidney Disease [] Anemia of Chronic Disease, please specify: [] [] Other, please indicate type of anemia []____ [] If Unable to Determine, please check the box, sign and date. Present On Admission (POA) Indicator: [] Present at the time of admission [] Not present at the time of admission [] Clinically Undetermined In responding to this query, please exercise your independent professional judgment. The fact that a question is asked does not imply that any particular answer is desired or expected. Thank you for your clarification on this documentation. If you have any questions please call:ext [phone] * Thank you, Sweta Ponce RN CDMP [facility]
--- NOTE | 2017-01-02 08:19 | PQF CHESTP ---
This form is a permanent part of the medical record 01/02/17 Dr. Leblanc, Please clarify the possible etiology of chest pain if known after work-up. Admitted with chest pain and SOB during hemodialysis. BP 80/59, HR 103 in the ER. History od HTN, DM and ESRD with a cardiac cath 2 weeks ago with normal coronaries. EKG: NSR, biatrial enlargement, LVH with repolarization abnormality , prolonged QT. Troponins: 0.04, 0.931, 0.784. Medications include Imdur, Lopressor and Ecotrin. There is clinical documentation of CHEST PAIN with evaluation, treatment, and / or monitoring present in the medical record. Please clarify the possible / probable cause of CHEST PAIN. Source Documentation: Chart Location: [] Progress Notes [] Consults [] Radiology Results Date: [] Date: [] Date:[] ED Records: [] H&P: [] Other: [] PHYSICIAN RESPONSE CAUSE OF CHEST PAIN: Please Check [] Documentation: [] Musculoskeletal Chest Pain [] Costochondritis [] Gastroesophageal Reflux Disease (GERD) [] Acute Gastritis [] Other [] Please specify [] Unknown [] In responding to this query, please exercise your independent professional judgment. The fact that a question is asked does not imply that any particular answer is desired or expected. Thank you for your clarification on this documentation. If you have any questions please call:[phone] * Thank you, Sweta Ponce RN CDMP [facility]
[2017-01-02] MEDS: Multivitamin Vitamin B Complex (Nephro-Vite) Tab PO SCH (08:25)
[2017-01-02] MEDS: Insulin Lispro (humaLOG) 100 Units/ml Inj SC SCH ×4 (08:29→21:20)
[2017-01-02 08:38] LABS: BASO % 0.8 % (0.0-2.0); EOS # 0.1 K/uL (0.0-0.7); EOS % 2.6 % (0.0-4.0); HEMOGLOBIN 10.3 g/dL (12.0-18.0); LYMPH # 1.5 K/uL (1.0-4.3); LYMPH % 30.6 % (20.0-40.0); MEAN CELL VOLUME 77.2 fl (80.0-94.0); MEAN CORPUSCULAR HEMOGLOBIN 25.5 pg (27.0-31.0); MEAN PLATELET VOLUME 8.3 fl (7.2-11.7); MONO # 0.7 K/uL (0.0-0.8); MONO % 13.7 % (0.0-10.0); NEUT # 2.5 K/uL (1.8-7.0); NEUT % 52.3 % (50.0-75.0); NRBC % 0.1 % (0.0-0.0); RBC 4.05 Mil/uL (4.40-5.90); WHITE BLOOD COUNT 4.8 K/uL (4.8-10.8)
--- NOTE | 2017-01-02 09:47 | CARD ---
APPROVED REPORT EKG Measurement Heart [id number] PA [id number] [id number] <Conclusion> Normal sinus rhythm Biatrial enlargement Left ventricular hypertrophy with repolarization abnormality Abnormal ECG
--- NOTE | 2017-01-02 10:25 | CP.PCM.PN ---
Subjective - Date & Time of Evaluation Date of Evaluation: 01/02/17 Time of Evaluation: 10:25 - Subjective Subjective: Patient in bed Appeared to be comfortable No shortness of breath no difficulty breathing He was seen by pipe stripper Physical exam Chest no rales Heart no rubs Abdomen soft Extremity no edema Impression and plan Lab reviewed Patient with end stage renal disease on maintenance hemodialysis TTS Scheduled for hemodialysis tomorrow Continue EPO for the anemia as related to end stage renal disease. Hemodialysis tomorrow Objective - Vital Signs/Intake and Output Vital Signs (last 24 hours): Temp Pulse Resp BP Pulse Ox 97.7 F 64 20 195/81 H 100 01/02/17 08:17 01/02/17 08:25 01/02/17 08:17 01/02/17 08:25 01/02/17 08:17 - Medications Medications: Current Medications Acetaminophen (Tylenol 325mg Tab) 650 mg PO Q4 PRN PRN Reason: Fever >100.4 F Acetaminophen (Tylenol 325mg Tab) 650 mg PO Q4 PRN PRN Reason: Pain, Mild (1-3) Last Admin: 12/31/16 23:11 Dose: 650 mg Amlodipine Besylate (Norvasc) 10 mg PO DAILY [facility] Last Admin: 01/02/17 08:25 Dose: 10 mg Aspirin (Ecotrin) 81 mg PO DAILY [facility] Last Admin: 01/02/17 08:22 Dose: 81 mg Atorvastatin Calcium (Lipitor) 20 mg PO DAILY [facility] Last Admin: 01/01/17 10:56 Dose: 20 mg Bisacodyl (Dulcolax) 10 mg [place] HS PRN PRN Reason: Constipation Last Admin: 12/31/16 02:30 Dose: 10 mg Calcitriol (Rocaltrol) 0.25 mcg PO DAILY [facility] Last Admin: 01/02/17 08:34 Dose: 0.25 mcg Clonidine HCl (Catapres-Tts3 0.3 Mg/24 Hr) 1 patch TD QWK [facility] Docusate Sodium (Colace) 200 mg PO HS [facility] Last Admin: 01/01/17 22:02 Dose: Not Given Epoetin Chad (Procrit) 8,000 unit IV TTS [facility] Hydralazine HCl (Apresoline) 100 mg PO Q8H [facility] Last Admin: 01/02/17 08:18 Dose: 100 mg Insulin Human Lispro (Humalog) 0 units SC TTS@TID [facility] Last Admin: 12/31/16 20:47 Dose: 2 units Insulin Human Lispro (Humalog) 0 units SC [email or web address]@[facility] Last Admin: 01/02/17 08:29 Dose: 2 unit Insulin Human Lispro (Humalog) 0 units SC SUN@[facility] Last Admin: 01/01/17 22:00 Dose: 2 units Isosorbide Mononitrate (Imdur) 30 mg PO DAILY [facility] Last Admin: 01/02/17 08:23 Dose: 30 mg Lactulose (Enulose) 20 gm PO DAILY PRN PRN Reason: Constipation Last Admin: 12/30/16 08:59 Dose: 20 gm Losartan Potassium (Cozaar) 50 mg PO DAILY [facility] Last Admin: 01/02/17 08:22 Dose: 50 mg Metoprolol Tartrate (Lopressor) 25 mg PO Q12 [facility] Last Admin: 01/02/17 08:24 Dose: 25 mg Oxycodone/Acetaminophen (Percocet 5/325 Mg Tab) 1 tab PO Q4 PRN PRN Reason: Pain, moderate (4-7) Stop: 01/04/17 15:16 Last Admin: 01/01/17 16:45 Dose: 1 tab Vitamin B Complex/Vit C/Folic Acid (Nephro-Mary Kate) 1 tab PO DAILY [facility] Last Admin: 01/02/17 08:25 Dose: 1 tab - Labs Labs: 01/02/17 08:00 12/31/16 05:30 Assessment and Plan (1) Chest pain Status: Acute (2) ESRD (end stage renal disease) Status: Chronic
--- NOTE | 2017-01-02 14:00 | CP.PCM.CON ---
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 PATIENT HAS RESIDUAL RIGHT SIDE WEAKNESS FROM THE PAST AND HAS DIABETIC NEUROPATHY ON EXAMINATION. HE FOLLOWS COMMANDS AND IS LEGALLY BLIND IN BOTH EYES. HIS BP IS STILL FLUCTUATING IN TERMS OF ELEVATION. MRI BRAIN IS ORDERED. ROS: 14 POINT REVIEW OF SYMPTOMS IS NEGATIVE PER HPI. ALLERGIES: AZITHROMYCIN, TAMSULOSIN. SOCIAL HISTORY: NO ILLICIT DRUG USE, SMOKING, OR ETOH USE. FAMILY: NON CONTRIBUTORY. MEDICATIONS: REVIEWED BY NURSE'S RECONCILIATION SHEET. PAST MEDICAL HISTORY: HTN, ESRD ON HD, HLD, RESIDUAL RIGHT SIDE WEAKNESS FROM CVA. PHYSICAL EXAM: VITAL SIGNS: REVIEWED BY THE CHART GENERAL EXAM: PATIENT SEEN IN BED, IN NO ACUTE DISTRESS HEENT: PERRLA, EOMI, NECK SUPPLE, NO JVD, NO ADENOPATHY CVS: S1, S2, RRR, NO MURMURS NOTED LUNGS: CLEAR TO AUSCULTATION, NO ADVENTITIOUS SOUNDS ABDOMEN: SOFT AND NONTENDER EXTREMITIES: NO CLUBBING OR CYANOSIS. PP 2+ B/LM, CHRONIC ISCHEMIC CHANGES IN THE LOWER EXTREMITIES. NEURO: PT IS ALERT AND ORIENTED TO PERSON, PLACE, AND YEAR. , RECALL TO 5 MINUTES 1/3, POOR ATTENTION SPAN. SPEECH IS FLUENT WITHOUT ERRORS, CN II-XII INTACT, LEGALLY BLIND IN BOTH EYES. MOTOR EXAM: NORMAL TONE, NORMAL BULK OF MUSCLE, MOVES ALL EXTREMITIES EQUALLY, NO PRONATOR DRIFT SEEN EXCEPT RESIDUAL RIGHT SIDE WEAKNESS FROM PRIOR CVA, SENSORY EXAM: DECREASED LIGHT TOUCH, PIN PRICK UP TO CALVES B/L, PROPRIOCEPTION IS INTACT , DECREASED VIBRATION AT TOES AND KNESS DEEP TENDON REFLEXES: 2+ THROUGHOUT AND ABSENT AT KNEES AND ANKLES. COORDINATION: FINGER TO NOSE IS INTACT. GAIT:DEFERRED. LABS: REVIEWED BY THE CHART. 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 PATIENT HAS RESIDUAL RIGHT SIDE WEAKNESS FROM THE PAST AND HAS DIABETIC NEUROPATHY ON EXAMINATION. HE FOLLOWS COMMANDS AND IS LEGALLY BLIND IN BOTH EYES. HIS BP IS STILL FLUCTUATING IN TERMS OF ELEVATION. MRI BRAIN IS ORDERED. . 1. C/W ASA 81 MG AND PLAVIX 75 MG FOR STROKE PREVENTION 2.KEEP BP BTW 123-130 MM HG 3. KEEP BLOOD SUGARS BTW 140-180. DIABETIC DUET ADVISED. 4. NEEDS PHYSICAL THERAPY FOR GAIT, BALANCE AND MUSCLE STRENGTHENING. 5. MRI BRAIN THANK YOU Shai FERNANDO MD Past Patient History - Infectious Disease Hx of Infectious Diseases: None - Tetanus Immunizations Tetanus Immunization: Unknown - Past Medical History & Family History Past Medical History?: Yes - Past Social History Smoking Status: Former Smoker - CARDIAC Hx Cardiac Disorders: Yes Hx Congestive Heart Failure: No Hx Hypercholesterolemia: No Hx Hypertension: Yes - PULMONARY Hx Respiratory Disorders: Yes Hx Chronic Obstructive Pulmonary Disease (COPD): No Hx Pneumonia: Yes - NEUROLOGICAL Hx Neurological Disorder: Yes HX Cerebrovascular Accident: Yes (june 2016) - HEENT Hx HEENT Problems: Yes - RENAL Hx Chronic Kidney Disease: Yes Hx Dialysis: Yes Type of Dialysis Access: right AV Date of Last Dialysis Treatment: 12/29/16 Hx Renal Failure: Yes - ENDOCRINE/METABOLIC Hx Endocrine Disorders: Yes Hx Diabetes Mellitus Type 1: Yes Hx Hypothyroidism: No - HEMATOLOGICAL/ONCOLOGICAL Hx Blood Disorders: No Hx Human Immunodeficiency Virus (HIV): No - INTEGUMENTARY Hx Dermatological Problems: No - MUSCULOSKELETAL/RHEUMATOLOGICAL Hx Musculoskeletal Disorders: No Hx Arthritis: No Hx Falls: No - GASTROINTESTINAL Hx Gastrointestinal Disorders: Yes Hx Gastritis: Yes - GENITOURINARY/GYNECOLOGICAL Hx Genitourinary Disorders: No - PSYCHIATRIC Hx Psychophysiologic Disorder: Yes Hx Schizophrenia: Yes Hx Substance Use: No - SURGICAL HISTORY Hx Surgeries: Yes Hx Eye Surgery: Yes (Glaucoma) Other/Comment: Bilateral eyes surgery for glaucoma and cataracts, right arm AV Shunt - ANESTHESIA Hx Anesthesia: Yes Hx Anesthesia Reactions: Yes (Vomiting) Hx Malignant Hyperthermia: No Has any member of the family had a problem w/ anesthesia?: No Meds Allergies/Adverse Reactions: Allergies Allergy/AdvReac Type Severity Reaction Status Date / Time azithromycin [From Zithromax] Allergy RASH Verified 12/29/16 19:41 tamsulosin [From Flomax] Allergy RASH Verified 12/29/16 15:05 - Medications Medications: Current Medications Acetaminophen (Tylenol 325mg Tab) 650 mg PO Q4 PRN PRN Reason: Fever >100.4 F Acetaminophen (Tylenol 325mg Tab) 650 mg PO Q4 PRN PRN Reason: Pain, Mild (1-3) Last Admin: 12/31/16 23:11 Dose: 650 mg Amlodipine Besylate (Norvasc) 10 mg PO DAILY [facility] Last Admin: 01/02/17 08:25 Dose: 10 mg Aspirin (Ecotrin) 81 mg PO DAILY [facility] Last Admin: 01/02/17 08:22 Dose: 81 mg Atorvastatin Calcium (Lipitor) 20 mg PO DAILY [facility] Last Admin: 01/02/17 13:00 Dose: 20 mg Bisacodyl (Dulcolax) 10 mg [place] HS PRN PRN Reason: Constipation Last Admin: 12/31/16 02:30 Dose: 10 mg Calcitriol (Rocaltrol) 0.25 mcg PO DAILY [facility] Last Admin: 01/02/17 08:34 Dose: 0.25 mcg Clonidine HCl (Catapres-Tts3 0.3 Mg/24 Hr) 1 patch TD QWK [facility] Docusate Sodium (Colace) 200 mg PO HS [facility] Last Admin: 01/01/17 22:02 Dose: Not Given Epoetin Chad (Procrit) 8,000 unit IV TTS [facility] Hydralazine HCl (Apresoline) 100 mg PO Q8H [facility] Last Admin: 01/02/17 08:18 Dose: 100 mg Insulin Human Lispro (Humalog) 0 units SC TTS@TID [facility] Last Admin: 12/31/16 20:47 Dose: 2 units Insulin Human Lispro (Humalog) 0 units SC [email or web address]@[facility] Last Admin: 01/02/17 12:56 Dose: 8 unit Insulin Human Lispro (Humalog) 0 units SC SUN@[email or web address] Last Admin: 01/01/17 22:00 Dose: 2 units Isosorbide Mononitrate (Imdur) 30 mg PO DAILY [facility] Last Admin: 01/02/17 08:23 Dose: 30 mg Lactulose (Enulose) 20 gm PO DAILY PRN PRN Reason: Constipation Last Admin: 12/30/16 08:59 Dose: 20 gm Losartan Potassium (Cozaar) 50 mg PO DAILY [facility] Last Admin: 01/02/17 08:22 Dose: 50 mg Metoprolol Tartrate (Lopressor) 25 mg PO Q12 [facility] Last Admin: 01/02/17 08:24 Dose: 25 mg Oxycodone/Acetaminophen (Percocet 5/325 Mg Tab) 1 tab PO Q4 PRN PRN Reason: Pain, moderate (4-7) Stop: 01/04/17 15:16 Last Admin: 01/01/17 16:45 Dose: 1 tab Vitamin B Complex/Vit C/Folic Acid (Nephro-Mary Kate) 1 tab PO DAILY [facility] Last Admin: 01/02/17 08:25 Dose: 1 tab Results - Vital Signs Recent Vital Signs: Last Vital Signs Temp 98.5 F 01/02/17 12:43 Pulse 67 01/02/17 12:43 Resp 18 01/02/17 12:43 BP 155/73 H 01/02/17 12:43 Pulse Ox 99 01/02/17 12:43 - Labs Result Diagrams: 01/02/17 08:00 12/31/16 05:30 Labs: Laboratory Results - last 24 hr 01/01/17 01/01/17 01/02/17 15:38 21:25 05:25 WBC RBC Hgb Hct MCV MCH MCHC RDW Plt Count MPV Neut % (Auto) Lymph % (Auto) [place] % (Auto) Eos % (Auto) Baso % (Auto) Neut # Lymph # [place] # Eos # Baso # POC Glucose (mg/dL) 96 159 H 184 H 01/02/17 01/02/17 08:00 11:15 WBC 4.8 RBC 4.05 L Hgb 10.3 L Hct 31.2 L MCV 77.2 L MCH 25.5 L MCHC 33.0 RDW 19.0 H Plt Count 166 MPV 8.3 Neut % (Auto) 52.3 Lymph % (Auto) 30.6 [place] % (Auto) 13.7 H Eos % (Auto) 2.6 Baso % (Auto) 0.8 Neut # 2.5 Lymph # 1.5 [place] # 0.7 Eos # 0.1 Baso # 0.0 POC Glucose (mg/dL) 305 H
--- NOTE | 2017-01-02 15:01 | CP.PCM.PN ---
Subjective - Date & Time of Evaluation Date of Evaluation: 01/02/17 Time of Evaluation: 14:59 - Subjective Subjective: Steady chest pain Objective - Vital Signs/Intake and Output Vital Signs (last 24 hours): Temp Pulse Resp BP Pulse Ox 98.5 F 67 18 155/73 H 99 01/02/17 12:43 01/02/17 12:43 01/02/17 12:43 01/02/17 12:43 01/02/17 12:43 - Medications Medications: Current Medications Acetaminophen (Tylenol 325mg Tab) 650 mg PO Q4 PRN PRN Reason: Fever >100.4 F Acetaminophen (Tylenol 325mg Tab) 650 mg PO Q4 PRN PRN Reason: Pain, Mild (1-3) Last Admin: 12/31/16 23:11 Dose: 650 mg Amlodipine Besylate (Norvasc) 10 mg PO DAILY [facility] Last Admin: 01/02/17 08:25 Dose: 10 mg Aspirin (Ecotrin) 81 mg PO DAILY [facility] Last Admin: 01/02/17 08:22 Dose: 81 mg Atorvastatin Calcium (Lipitor) 20 mg PO DAILY [facility] Last Admin: 01/02/17 13:00 Dose: 20 mg Bisacodyl (Dulcolax) 10 mg [place] HS PRN PRN Reason: Constipation Last Admin: 12/31/16 02:30 Dose: 10 mg Calcitriol (Rocaltrol) 0.25 mcg PO DAILY [facility] Last Admin: 01/02/17 08:34 Dose: 0.25 mcg Clonidine HCl (Catapres-Tts3 0.3 Mg/24 Hr) 1 patch TD QWK [facility] Docusate Sodium (Colace) 200 mg PO HS [facility] Last Admin: 01/01/17 22:02 Dose: Not Given Epoetin Chad (Procrit) 8,000 unit IV TTS [facility] Hydralazine HCl (Apresoline) 100 mg PO Q8H [facility] Last Admin: 01/02/17 08:18 Dose: 100 mg Insulin Human Lispro (Humalog) 0 units SC TTS@TID [facility] Last Admin: 12/31/16 20:47 Dose: 2 units Insulin Human Lispro (Humalog) 0 units SC MWF@[facility] Last Admin: 01/02/17 12:56 Dose: 8 unit Insulin Human Lispro (Humalog) 0 units SC SUN@[email or web address] Last Admin: 01/01/17 22:00 Dose: 2 units Isosorbide Mononitrate (Imdur) 30 mg PO DAILY [facility] Last Admin: 01/02/17 08:23 Dose: 30 mg Lactulose (Enulose) 20 gm PO DAILY PRN PRN Reason: Constipation Last Admin: 12/30/16 08:59 Dose: 20 gm Losartan Potassium (Cozaar) 50 mg PO DAILY [facility] Last Admin: 01/02/17 08:22 Dose: 50 mg Metoprolol Tartrate (Lopressor) 25 mg PO Q12 [facility] Last Admin: 01/02/17 08:24 Dose: 25 mg Oxycodone/Acetaminophen (Percocet 5/325 Mg Tab) 1 tab PO Q4 PRN PRN Reason: Pain, moderate (4-7) Stop: 01/04/17 15:16 Last Admin: 01/01/17 16:45 Dose: 1 tab Vitamin B Complex/Vit C/Folic Acid (Nephro-Mary Kate) 1 tab PO DAILY [facility] Last Admin: 01/02/17 08:25 Dose: 1 tab - Labs Labs: 01/02/17 08:00 12/31/16 05:30 - Head Exam Head Exam: ATRAUMATIC - Neck Exam Neck Exam: Normal Inspection - Respiratory Exam Respiratory Exam: NORMAL BREATHING PATTERN - Cardiovascular Exam Cardiovascular Exam: REGULAR RHYTHM - GI/Abdominal Exam GI & Abdominal Exam: Normal Bowel Sounds - Extremities Exam Extremities Exam: Normal Inspection Assessment and Plan - Assessment and Plan (Free Text) Assessment: Chest pain, r/o pericarditis ESRD HTN DM Plan: Cont Acetaminophen (Tylenol 325mg Tab) 650 mg PO Q4 PRN PRN Reason: Fever >100.4 F Acetaminophen (Tylenol 325mg Tab) 650 mg PO Q4 PRN PRN Reason: Pain, Mild (1-3) Last Admin: 12/31/16 23:11 Dose: 650 mg Amlodipine Besylate (Norvasc) 10 mg PO DAILY [facility] Last Admin: 01/02/17 08:25 Dose: 10 mg Aspirin (Ecotrin) 81 mg PO DAILY [facility] Last Admin: 01/02/17 08:22 Dose: 81 mg Atorvastatin Calcium (Lipitor) 20 mg PO DAILY [facility] Last Admin: 01/02/17 13:00 Dose: 20 mg Bisacodyl (Dulcolax) 10 mg [place] HS PRN PRN Reason: Constipation Last Admin: 12/31/16 02:30 Dose: 10 mg Calcitriol (Rocaltrol) 0.25 mcg PO DAILY [facility] Last Admin: 01/02/17 08:34 Dose: 0.25 mcg Clonidine HCl (Catapres-Tts3 0.3 Mg/24 Hr) 1 patch TD QWK [facility] Docusate Sodium (Colace) 200 mg PO HS [facility] Last Admin: 01/01/17 22:02 Dose: Not Given Epoetin Chad (Procrit) 8,000 unit IV TTS [facility] Hydralazine HCl (Apresoline) 100 mg PO Q8H [facility] Last Admin: 01/02/17 08:18 Dose: 100 mg Insulin Human Lispro (Humalog) 0 units SC TTS@TID [facility] Last Admin: 12/31/16 20:47 Dose: 2 units Insulin Human Lispro (Humalog) 0 units SC MWF@[facility] Last Admin: 01/02/17 12:56 Dose: 8 unit Insulin Human Lispro (Humalog) 0 units SC SUN@[email or web address] Last Admin: 01/01/17 22:00 Dose: 2 units Isosorbide Mononitrate (Imdur) 30 mg PO DAILY [facility] Last Admin: 01/02/17 08:23 Dose: 30 mg Lactulose (Enulose) 20 gm PO DAILY PRN PRN Reason: Constipation Last Admin: 12/30/16 08:59 Dose: 20 gm Losartan Potassium (Cozaar) 50 mg PO DAILY [facility] Last Admin: 01/02/17 08:22 Dose: 50 mg Metoprolol Tartrate (Lopressor) 25 mg PO Q12 [facility] Last Admin: 01/02/17 08:24 Dose: 25 mg Oxycodone/Acetaminophen (Percocet 5/325 Mg Tab) 1 tab PO Q4 PRN PRN Reason: Pain, moderate (4-7) Stop: 01/04/17 15:16 Last Admin: 01/01/17 16:45 Dose: 1 tab Vitamin B Complex/Vit C/Folic Acid (Nephro-Mary Kate) 1 tab PO DAILY [facility] Last Admin: 01/02/17 08:25 Dose: [address] Melendez
--- NOTE | 2017-01-02 15:43 | MRI ---
PROCEDURE: MRI BRAIN WITHOUT CONTRAST HISTORY: abnromal ct head COMPARISON: Comparison made with prior CT scan brain dated 12/30/2016. Examination is limited by motion artifact. Correlation also made with concurrent MRA brain TECHNIQUE: Multiplanar, multisequence MR images of the brain were obtained without intravenous contrast enhancement. FINDINGS: HEMORRHAGE: The current study reveals a curvilinear area of very dark T2 signal which extends from the left posterior coronal radiata anteriorly and laterally into the left subinsular region and left inferior basal ganglia. Findings are consistent with hemosiderin deposition. Suspect underlying developmental venous anomaly (DVA) such as a venous angioma and/or adjacent cavernoma. Note that venous angiomas are often times associated within adjacent cavernoma. This suspected venous angioma is seen to better advantage on recent CT scan of the brain. Follow-up post-contrast MRI of the brain recommended to further characterize this area. There is also another hemosiderin deposit in the right superior periventricular white matter/mckenna radiata as well. DWI: No evidence of acute infarct seen on diffusion imaging. BRAIN PARENCHYMA: N mild chronic periventricular white matter ischemic changes with multiple small lacunar type infarcts scattered about the deep and subcortical white matter both cerebral hemispheres. . There is also chronic infarct left aspect of the osmani Mild generalized volume loss. VENTRICLES: No evidence of obstructive type hydrocephalus. CRANIUM: Calvarium grossly unremarkable. ORBITS: Changes of left-sided cataract surgery. PARANASAL SINUSES/MASTOIDS: Clear VASCULAR SYSTEM: Sk visualized major vascular flow voids at skull base are patent. OTHER FINDINGS: None. IMPRESSION: There is hemosiderin staining seen along the on left posterior superior coronal radiata extending anteriorly and laterally into the left lateral and inferior basal ganglia. Findings may represent underlying DVA such as a venous angioma and possibly an adjacent cavernoma. There is also small hemosiderin deposit in the right posterior mckenna radiata. Followup post-contrast MRI of the brain recommended. Mild chronic white matter ischemic changes. Mild generalized volume loss.
--- NOTE | 2017-01-02 15:51 | MRI ---
PROCEDURE: MR venogram dated 01/29/2017 HISTORY: DVA COMPARISON: Comparison made with concurrent MRI brain as well as prior CT scan brain 12/30/2016 TECHNIQUE: 3D [id number] MR venography performed. FINDINGS: Suspected small DVA - venous angioma and possible adjacent cavernoma in the left basal ganglia and left posterior mckenna radiata is not appreciated on this study. The flow within within a venous angioma this to two small on to slow to be observed on MRV. The visualized superior sagittal coronal chronic transverse sinuses and sigmoid sinuses throughout. There is mild asymmetry of the transverse sinus, left-side of which is smaller in caliber than the right. . Note that intracranial arterial circulation is partially visualized. There appears to be origins of both posterior cerebral arteries Impression: Previously suspected DVA -venous angioma is not seen on this exam. Visualized intracranial venous sinuses are patent with asymmetry of the transverse sinuses left-side of which is smaller in caliber than the right.
[2017-01-03] MEDS: Multivitamin Vitamin B Complex (Nephro-Vite) Tab PO SCH (08:07)
[2017-01-03] MEDS: Insulin Lispro (humaLOG) 100 Units/ml Inj SC SCH ×3 (08:08→16:25)
[2017-01-03] MEDS: EPOETIN ALFA 10,000 UNIT/ML ML IV SCH (12:58)
--- NOTE | 2017-01-03 14:26 | CP.PCM.PN ---
Subjective - Date & Time of Evaluation Date of Evaluation: 01/03/17 Time of Evaluation: 01:30 - Subjective Subjective: C/o feeling weak Objective - Vital Signs/Intake and Output Vital Signs (last 24 hours): Temp Pulse Resp BP Pulse Ox 97.5 F L 74 18 148/76 99 01/03/17 12:15 01/03/17 12:15 01/03/17 12:15 01/03/17 12:15 01/03/17 12:15 - Medications Medications: Current Medications Acetaminophen (Tylenol 325mg Tab) 650 mg PO Q4 PRN PRN Reason: Fever >100.4 F Acetaminophen (Tylenol 325mg Tab) 650 mg PO Q4 PRN PRN Reason: Pain, Mild (1-3) Last Admin: 12/31/16 23:11 Dose: 650 mg Amlodipine Besylate (Norvasc) 10 mg PO DAILY [facility] Last Admin: 01/03/17 08:03 Dose: 10 mg Aspirin (Ecotrin) 81 mg PO DAILY [facility] Last Admin: 01/03/17 08:07 Dose: 81 mg Atorvastatin Calcium (Lipitor) 20 mg PO DAILY [facility] Last Admin: 01/03/17 08:08 Dose: 20 mg Bisacodyl (Dulcolax) 10 mg [place] HS PRN PRN Reason: Constipation Last Admin: 12/31/16 02:30 Dose: 10 mg Calcitriol (Rocaltrol) 0.25 mcg PO DAILY [facility] Last Admin: 01/03/17 08:07 Dose: 0.25 mcg Clonidine HCl (Catapres-Tts3 0.3 Mg/24 Hr) 1 patch TD QWK [facility] Clonidine HCl (Catapres Tts1 0.1 Mg/24 Hr) 1 patch TD Q7D [facility] Last Admin: 01/02/17 21:45 Dose: 1 patch Docusate Sodium (Colace) 200 mg PO HS [facility] Last Admin: 01/02/17 21:15 Dose: 200 mg Epoetin Chad (Procrit) 8,000 unit IV TTS [facility] Last Admin: 01/03/17 12:58 Dose: 8,000 unit Hydralazine HCl (Apresoline) 100 mg PO Q8H [facility] Last Admin: 01/03/17 08:04 Dose: 100 mg Insulin Human Lispro (Humalog) 0 units SC TTS@TID [facility] Last Admin: 01/03/17 12:53 Dose: 2 units Insulin Human Lispro (Humalog) 0 units SC MWF@[facility] Last Admin: 01/02/17 21:20 Dose: 6 unit Insulin Human Lispro (Humalog) 0 units SC SUN@[facility] Last Admin: 01/01/17 22:00 Dose: 2 units Isosorbide Mononitrate (Imdur) 30 mg PO DAILY [facility] Last Admin: 01/03/17 08:08 Dose: 30 mg Lactulose (Enulose) 20 gm PO DAILY PRN PRN Reason: Constipation Last Admin: 12/30/16 08:59 Dose: 20 gm Losartan Potassium (Cozaar) 50 mg PO DAILY [facility] Last Admin: 01/03/17 08:03 Dose: 50 mg Metoprolol Tartrate (Lopressor) 25 mg PO Q12 [facility] Last Admin: 01/03/17 08:02 Dose: 25 mg Oxycodone/Acetaminophen (Percocet 5/325 Mg Tab) 1 tab PO Q4 PRN PRN Reason: Pain, moderate (4-7) Stop: 01/04/17 15:16 Last Admin: 01/01/17 16:45 Dose: 1 tab Vitamin B Complex/Vit C/Folic Acid (Nephro-Mary Kate) 1 tab PO DAILY [facility] Last Admin: 01/03/17 08:07 Dose: 1 tab - Labs Labs: 01/02/17 08:00 12/31/16 05:30 - Respiratory Exam Additional comments: Lungs clear - Cardiovascular Exam Cardiovascular Exam: REGULAR RHYTHM - Extremities Exam Additional comments: No edema Assessment and Plan - Assessment and Plan (Free Text) Assessment: ESRD on HD HTN CAD IDDM Plan: Dialysis tolerated well today Monitor BP Labs in am
--- NOTE | 2017-01-03 17:33 | CP.PCM.PN ---
Subjective - Date & Time of Evaluation Date of Evaluation: 01/03/17 Time of Evaluation: 17:31 - Subjective Subjective: sharp chest pain Objective - Vital Signs/Intake and Output Vital Signs (last 24 hours): Temp Pulse Resp BP Pulse Ox 98.6 F 78 18 153/69 H 100 01/03/17 16:02 01/03/17 16:02 01/03/17 16:02 01/03/17 16:02 01/03/17 16:02 - Medications Medications: Current Medications Acetaminophen (Tylenol 325mg Tab) 650 mg PO Q4 PRN PRN Reason: Fever >100.4 F Acetaminophen (Tylenol 325mg Tab) 650 mg PO Q4 PRN PRN Reason: Pain, Mild (1-3) Last Admin: 12/31/16 23:11 Dose: 650 mg Amlodipine Besylate (Norvasc) 10 mg PO DAILY [facility] Last Admin: 01/03/17 08:03 Dose: 10 mg Aspirin (Ecotrin) 81 mg PO DAILY [facility] Last Admin: 01/03/17 08:07 Dose: 81 mg Atorvastatin Calcium (Lipitor) 20 mg PO DAILY [facility] Last Admin: 01/03/17 08:08 Dose: 20 mg Bisacodyl (Dulcolax) 10 mg [place] HS PRN PRN Reason: Constipation Last Admin: 12/31/16 02:30 Dose: 10 mg Calcitriol (Rocaltrol) 0.25 mcg PO DAILY [facility] Last Admin: 01/03/17 08:07 Dose: 0.25 mcg Clonidine HCl (Catapres-Tts3 0.3 Mg/24 Hr) 1 patch TD QWK [facility] Clonidine HCl (Catapres Tts1 0.1 Mg/24 Hr) 1 patch TD Q7D [facility] Last Admin: 01/02/17 21:45 Dose: 1 patch Docusate Sodium (Colace) 200 mg PO HS [facility] Last Admin: 01/02/17 21:15 Dose: 200 mg Epoetin Chad (Procrit) 8,000 unit IV TTS [facility] Last Admin: 01/03/17 12:58 Dose: 8,000 unit Hydralazine HCl (Apresoline) 100 mg PO Q8H [facility] Last Admin: 01/03/17 16:24 Dose: 100 mg Insulin Human Lispro (Humalog) 0 units SC TTS@TID [facility] Last Admin: 01/03/17 16:25 Dose: 6 units Insulin Human Lispro (Humalog) 0 units SC MWF@[facility] Last Admin: 01/02/17 21:20 Dose: 6 unit Insulin Human Lispro (Humalog) 0 units SC SUN@[facility] Last Admin: 01/01/17 22:00 Dose: 2 units Isosorbide Mononitrate (Imdur) 30 mg PO DAILY [facility] Last Admin: 01/03/17 08:08 Dose: 30 mg Lactulose (Enulose) 20 gm PO DAILY PRN PRN Reason: Constipation Last Admin: 12/30/16 08:59 Dose: 20 gm Losartan Potassium (Cozaar) 50 mg PO DAILY [facility] Last Admin: 01/03/17 08:03 Dose: 50 mg Metoprolol Tartrate (Lopressor) 25 mg PO Q12 [facility] Last Admin: 01/03/17 08:02 Dose: 25 mg Oxycodone/Acetaminophen (Percocet 5/325 Mg Tab) 1 tab PO Q4 PRN PRN Reason: Pain, moderate (4-7) Stop: 01/04/17 15:16 Last Admin: 01/01/17 16:45 Dose: 1 tab Vitamin B Complex/Vit C/Folic Acid (Nephro-Mary Kate) 1 tab PO DAILY [facility] Last Admin: 01/03/17 08:07 Dose: 1 tab - Labs Labs: 01/02/17 08:00 12/31/16 05:30 - Constitutional Appears: Non-toxic - Neck Exam Neck Exam: Normal Inspection - Respiratory Exam Respiratory Exam: NORMAL BREATHING PATTERN - Cardiovascular Exam Cardiovascular Exam: REGULAR RHYTHM - Extremities Exam Extremities Exam: Normal Inspection Assessment and Plan - Assessment and Plan (Free Text) Assessment: Atypical chest pain HTN ESRD DM Retinopathy Plan: Cont. Acetaminophen (Tylenol 325mg Tab) 650 mg PO Q4 PRN PRN Reason: Fever >100.4 F Acetaminophen (Tylenol 325mg Tab) 650 mg PO Q4 PRN PRN Reason: Pain, Mild (1-3) Last Admin: 12/31/16 23:11 Dose: 650 mg Amlodipine Besylate (Norvasc) 10 mg PO DAILY [facility] Last Admin: 01/03/17 08:03 Dose: 10 mg Aspirin (Ecotrin) 81 mg PO DAILY [facility] Last Admin: 01/03/17 08:07 Dose: 81 mg Atorvastatin Calcium (Lipitor) 20 mg PO DAILY [facility] Last Admin: 01/03/17 08:08 Dose: 20 mg Bisacodyl (Dulcolax) 10 mg [place] HS PRN PRN Reason: Constipation Last Admin: 12/31/16 02:30 Dose: 10 mg Calcitriol (Rocaltrol) 0.25 mcg PO DAILY [facility] Last Admin: 01/03/17 08:07 Dose: 0.25 mcg Clonidine HCl (Catapres-Tts3 0.3 Mg/24 Hr) 1 patch TD QWK [facility] Clonidine HCl (Catapres Tts1 0.1 Mg/24 Hr) 1 patch TD Q7D [facility] Last Admin: 01/02/17 21:45 Dose: 1 patch Docusate Sodium (Colace) 200 mg PO HS [facility] Last Admin: 01/02/17 21:15 Dose: 200 mg Epoetin Chad (Procrit) 8,000 unit IV TTS [facility] Last Admin: 01/03/17 12:58 Dose: 8,000 unit Hydralazine HCl (Apresoline) 100 mg PO Q8H [facility] Last Admin: 01/03/17 16:24 Dose: 100 mg Insulin Human Lispro (Humalog) 0 units SC TTS@TID [facility] Last Admin: 01/03/17 16:25 Dose: 6 units Insulin Human Lispro (Humalog) 0 units SC MWF@[facility] Last Admin: 01/02/17 21:20 Dose: 6 unit Insulin Human Lispro (Humalog) 0 units SC SUN@[facility] Last Admin: 01/01/17 22:00 Dose: 2 units Isosorbide Mononitrate (Imdur) 30 mg PO DAILY [facility] Last Admin: 01/03/17 08:08 Dose: 30 mg Lactulose (Enulose) 20 gm PO DAILY PRN PRN Reason: Constipation Last Admin: 12/30/16 08:59 Dose: 20 gm Losartan Potassium (Cozaar) 50 mg PO DAILY [facility] Last Admin: 01/03/17 08:03 Dose: 50 mg Metoprolol Tartrate (Lopressor) 25 mg PO Q12 [facility] Last Admin: 01/03/17 08:02 Dose: 25 mg Oxycodone/Acetaminophen (Percocet 5/325 Mg Tab) 1 tab PO Q4 PRN PRN Reason: Pain, moderate (4-7) Stop: 01/04/17 15:16 Last Admin: 01/01/17 16:45 Dose: 1 tab Vitamin B Complex/Vit C/Folic Acid (Nephro-Mary Kate) 1 tab PO DAILY [facility] Last Admin: 01/03/17 08:07 Dose: 1 tab
[2017-01-04 07:22] LABS: HEMOGLOBIN 10.6 g/dL (12.0-18.0); MEAN CELL VOLUME 78.4 fl (80.0-94.0); MEAN CORPUSCULAR HGB CONC 31.9 g/dL (33.0-37.0); RBC 4.22 Mil/uL (4.40-5.90); RED CELL DISTRIBUTION WIDTH 19.3 % (11.5-14.5); WHITE BLOOD COUNT 5.5 K/uL (4.8-10.8)
[2017-01-04 07:35] LABS: CALCIUM 9.5 mg/dL (8.4-10.2)
[2017-01-04] MEDS: Multivitamin Vitamin B Complex (Nephro-Vite) Tab PO SCH (08:51)
[2017-01-04] MEDS: Insulin Lispro (humaLOG) 100 Units/ml Inj SC SCH ×4 (08:54→21:58)
--- NOTE | 2017-01-04 09:54 | CP.PCM.PN ---
Subjective - Date & Time of Evaluation Date of Evaluation: 01/04/17 Time of Evaluation: 09:52 - Subjective Subjective: Patient sitting up in bed Appeared to be comfortable No chest pain reported Patient is legally blind apparently he cannot see much. Physical exam Vital sign noted to be okay except blood pressure is still elevated we will add minoxidil Chest no rales Heart no rubs Abdomen soft Extremity no edema Patient and plan End stage renal disease on maintenance hemodialysis Diabetes mellitus high blood pressure is still not well controlled at minoxidil 2.5 mg today and titrate the dose up to 5 mg Hemodialysis scheduled for tomorrow Objective - Vital Signs/Intake and Output Vital Signs (last 24 hours): Temp Pulse Resp BP Pulse Ox 98.2 F 71 18 192/83 H 100 01/04/17 08:37 01/04/17 08:53 01/04/17 08:37 01/04/17 08:53 01/04/17 08:37 - Medications Medications: Current Medications Acetaminophen (Tylenol 325mg Tab) 650 mg PO Q4 PRN PRN Reason: Fever >100.4 F Acetaminophen (Tylenol 325mg Tab) 650 mg PO Q4 PRN PRN Reason: Pain, Mild (1-3) Last Admin: 12/31/16 23:11 Dose: 650 mg Amlodipine Besylate (Norvasc) 10 mg PO DAILY [facility] Last Admin: 01/04/17 08:51 Dose: 10 mg Aspirin (Ecotrin) 81 mg PO DAILY [facility] Last Admin: 01/04/17 08:52 Dose: 81 mg Atorvastatin Calcium (Lipitor) 20 mg PO DAILY [facility] Last Admin: 01/04/17 08:52 Dose: 20 mg Bisacodyl (Dulcolax) 10 mg [place] HS PRN PRN Reason: Constipation Last Admin: 12/31/16 02:30 Dose: 10 mg Calcitriol (Rocaltrol) 0.25 mcg PO DAILY [facility] Last Admin: 01/04/17 08:52 Dose: 0.25 mcg Clonidine HCl (Catapres-Tts3 0.3 Mg/24 Hr) 1 patch TD QWK [facility] Clonidine HCl (Catapres Tts1 0.1 Mg/24 Hr) 1 patch TD Q7D [facility] Last Admin: 01/02/17 21:45 Dose: 1 patch Docusate Sodium (Colace) 200 mg PO HS [facility] Last Admin: 01/03/17 21:16 Dose: 200 mg Epoetin Chad (Procrit) 8,000 unit IV TTS [facility] Last Admin: 01/03/17 12:58 Dose: 8,000 unit Hydralazine HCl (Apresoline) 100 mg PO Q8H [facility] Last Admin: 01/04/17 08:53 Dose: 100 mg Insulin Human Lispro (Humalog) 0 units SC TTS@TID [facility] Last Admin: 01/03/17 16:25 Dose: 6 units Insulin Human Lispro (Humalog) 0 units SC MWF@[facility] Last Admin: 01/04/17 08:54 Dose: 2 unit Insulin Human Lispro (Humalog) 0 units SC SUN@[facility] Last Admin: 01/01/17 22:00 Dose: 2 units Isosorbide Mononitrate (Imdur) 30 mg PO DAILY [facility] Last Admin: 01/04/17 08:52 Dose: 30 mg Lactulose (Enulose) 20 gm PO DAILY PRN PRN Reason: Constipation Last Admin: 01/04/17 08:57 Dose: 20 gm Losartan Potassium (Cozaar) 50 mg PO DAILY [facility] Last Admin: 01/04/17 08:51 Dose: 50 mg Losartan Potassium (Cozaar) 100 mg PO DAILY [facility] Metoprolol Tartrate (Lopressor) 25 mg PO Q12 [facility] Last Admin: 01/04/17 08:52 Dose: 25 mg Minoxidil (Minoxidil) 2.5 mg PO DAILY [facility] Oxycodone/Acetaminophen (Percocet 5/325 Mg Tab) 1 tab PO Q4 PRN PRN Reason: Pain, moderate (4-7) Stop: 01/04/17 15:16 Last Admin: 01/01/17 16:45 Dose: 1 tab Vitamin B Complex/Vit C/Folic Acid (Nephro-Mary Kate) 1 tab PO DAILY [facility] Last Admin: 01/04/17 08:51 Dose: 1 tab - Labs Labs: 01/04/17 05:00 01/04/17 05:00 Assessment and Plan (1) Chest pain Status: Acute (2) ESRD (end stage renal disease) Status: Chronic
--- NOTE | 2017-01-04 10:48 | CP.PCM.PN ---
<Candido Rangel - Last Filed: 01/04/17 15:44> Subjective - Date & Time of Evaluation Date of Evaluation: 01/04/17 Time of Evaluation: 10:48 - Subjective Subjective: pt seen and examined at bedside this morning with attending. No acute events overnight. pt sitting up in bed comfortably, NAD. Tolerating PO intake w/o difficulty. S/P dialysis 01/03. No new complaints. BPs ranging from 176/67-192/ 83. Denies headaches, changes in vision, CP/SOB/JACQUES/palpitations, N/V/D/C, urinary symptoms, new onset numbness/tingling Objective - Vital Signs/Intake and Output Vital Signs (last 24 hours): Temp Pulse Resp BP Pulse Ox 98.2 F 71 18 172/67 H 100 01/04/17 08:37 01/04/17 10:35 01/04/17 08:37 01/04/17 10:35 01/04/17 08:37 - Medications Medications: Current Medications Acetaminophen (Tylenol 325mg Tab) 650 mg PO Q4 PRN PRN Reason: Fever >100.4 F Acetaminophen (Tylenol 325mg Tab) 650 mg PO Q4 PRN PRN Reason: Pain, Mild (1-3) Last Admin: 12/31/16 23:11 Dose: 650 mg Amlodipine Besylate (Norvasc) 10 mg PO DAILY [facility] Last Admin: 01/04/17 08:51 Dose: 10 mg Aspirin (Ecotrin) 81 mg PO DAILY [facility] Last Admin: 01/04/17 08:52 Dose: 81 mg Atorvastatin Calcium (Lipitor) 20 mg PO DAILY [facility] Last Admin: 01/04/17 08:52 Dose: 20 mg Bisacodyl (Dulcolax) 10 mg [place] HS PRN PRN Reason: Constipation Last Admin: 12/31/16 02:30 Dose: 10 mg Calcitriol (Rocaltrol) 0.25 mcg PO DAILY [facility] Last Admin: 01/04/17 08:52 Dose: 0.25 mcg Clonidine HCl (Catapres) 0.3 mg PO TID [facility] Docusate Sodium (Colace) 200 mg PO HS [facility] Last Admin: 01/03/17 21:16 Dose: 200 mg Epoetin Chad (Procrit) 8,000 unit IV TTS [facility] Last Admin: 01/03/17 12:58 Dose: 8,000 unit Hydralazine HCl (Apresoline) 100 mg PO Q8H [facility] Last Admin: 01/04/17 08:53 Dose: 100 mg Insulin Human Lispro (Humalog) 0 units SC TTS@TID [facility] Last Admin: 01/03/17 16:25 Dose: 6 units Insulin Human Lispro (Humalog) 0 units SC MWF@[facility] Last Admin: 01/04/17 08:54 Dose: 2 unit Insulin Human Lispro (Humalog) 0 units SC SUN@[facility] Last Admin: 01/01/17 22:00 Dose: 2 units Isosorbide Mononitrate (Imdur) 30 mg PO DAILY [facility] Last Admin: 01/04/17 08:52 Dose: 30 mg Lactulose (Enulose) 20 gm PO DAILY PRN PRN Reason: Constipation Last Admin: 01/04/17 08:57 Dose: 20 gm Losartan Potassium (Cozaar) 100 mg PO DAILY [facility] Metoprolol Tartrate (Lopressor) 25 mg PO Q12 [facility] Last Admin: 01/04/17 08:52 Dose: 25 mg Minoxidil (Minoxidil) 2.5 mg PO DAILY [facility] Last Admin: 01/04/17 10:35 Dose: 2.5 mg Oxycodone/Acetaminophen (Percocet 5/325 Mg Tab) 1 tab PO Q4 PRN PRN Reason: Pain, moderate (4-7) Stop: 01/04/17 15:16 Last Admin: 01/01/17 16:45 Dose: 1 tab Valsartan (Diovan) 320 mg PO DAILY [facility] Vitamin B Complex/Vit C/Folic Acid (Nephro-Mary Kate) 1 tab PO DAILY [facility] Last Admin: 01/04/17 08:51 Dose: 1 tab - Labs Labs: 01/04/17 05:00 01/04/17 05:00 - Constitutional Appears: Non-toxic, No Acute Distress - Eye Exam Eye Exam: EOMI Pupil Exam: PERRL - ENT Exam ENT Exam: Mucous Membranes Moist - Respiratory Exam Respiratory Exam: Clear to Ausculation Bilateral, NORMAL BREATHING PATTERN. absent: Rales, Rhonchi, Wheezes - Cardiovascular Exam Cardiovascular Exam: REGULAR RHYTHM, RRR, +S1, +S2, Murmur. absent: JVD Additional comments: Grade 2/6 cresendo/decresendo murmur located at RUSB - Neurological Exam Neurological Exam: Alert, Awake, Oriented x3 Assessment and Plan - Assessment and Plan (Free Text) Assessment: 56 y/o male with PMHx of HTN, ESRD, and DM admitted for atypical chest pain and ESRD. Plan: Atypical chest pain -continue current management HTN -started on Minoxidil 2.5 mg, will titrate up to 5mg for better BP control ESRD -dialysis 01/05 DM -continue with home meds <Lino Melendez - Last Filed: 01/05/17 09:22> Objective - Vital Signs/Intake and Output Vital Signs (last 24 hours): Temp Pulse Resp BP Pulse Ox 98 F 72 18 168/64 H 100 01/05/17 08:00 01/05/17 08:52 01/05/17 08:00 01/05/17 08:52 01/05/17 08:00 - Medications Medications: Current Medications Acetaminophen (Tylenol 325mg Tab) 650 mg PO Q4 PRN PRN Reason: Fever >100.4 F Last Admin: 01/04/17 17:20 Dose: 650 mg Acetaminophen (Tylenol 325mg Tab) 650 mg PO Q4 PRN PRN Reason: Pain, Mild (1-3) Last Admin: 12/31/16 23:11 Dose: 650 mg Aspirin (Ecotrin) 81 mg PO DAILY [facility] Last Admin: 01/05/17 08:45 Dose: 81 mg Atorvastatin Calcium (Lipitor) 20 mg PO DAILY [facility] Last Admin: 01/05/17 08:44 Dose: 20 mg Bisacodyl (Dulcolax) 10 mg [place] HS PRN PRN Reason: Constipation Last Admin: 12/31/16 02:30 Dose: 10 mg Calcitriol (Rocaltrol) 0.25 mcg PO DAILY [facility] Last Admin: 01/05/17 08:44 Dose: 0.25 mcg Clonidine HCl (Catapres) 0.3 mg PO TID [facility] Last Admin: 01/05/17 08:52 Dose: 0.3 mg Docusate Sodium (Colace) 200 mg PO HS [facility] Last Admin: 01/04/17 21:53 Dose: Not Given Epoetin Chad (Procrit) 8,000 unit IV TTS [facility] Last Admin: 01/03/17 12:58 Dose: 8,000 unit Hydralazine HCl (Apresoline) 100 mg PO Q8H [facility] Last Admin: 01/05/17 08:45 Dose: 100 mg Insulin Human Lispro (Humalog) 0 units SC TTS@TID [facility] Last Admin: 01/05/17 08:37 Dose: 4 units Insulin Human Lispro (Humalog) 0 units SC MWF@[facility] Last Admin: 01/04/17 21:58 Dose: Not Given Insulin Human Lispro (Humalog) 0 units SC SUN@[facility] Last Admin: 01/01/17 22:00 Dose: 2 units Isosorbide Mononitrate (Imdur) 30 mg PO DAILY [facility] Last Admin: 01/04/17 08:52 Dose: 30 mg Lactulose (Enulose) 20 gm PO DAILY PRN PRN Reason: Constipation Last Admin: 01/04/17 21:56 Dose: 20 gm Losartan Potassium (Cozaar) 100 mg PO DAILY [facility] Metoprolol Tartrate (Lopressor) 25 mg PO Q12 [facility] Last Admin: 01/05/17 08:51 Dose: 25 mg Minoxidil (Minoxidil) 2.5 mg PO BID [facility] Valsartan (Diovan) 320 mg PO DAILY [facility] Last Admin: 01/04/17 14:33 Dose: 320 mg Vitamin B Complex/Vit C/Folic Acid (Nephro-Mary Kate) 1 tab PO DAILY [facility] Last Admin: 01/05/17 08:41 Dose: 1 tab - Labs Labs: 01/04/17 05:00 01/04/17 05:00 Assessment and Plan (1) Chest pain Status: Acute (2) ESRD (end stage renal disease) Status: Chronic (3) Type 2 diabetes mellitus with hyperglycemia Status: Acute (4) Uncontrolled hypertension Status: Acute - Assessment and Plan (Free Text) Plan: I was present during evaluation and discussed with Dr Rangel re plans of care
[2017-01-05] MEDS: Insulin Lispro (humaLOG) 100 Units/ml Inj SC SCH ×3 (08:37→17:39)
[2017-01-05] MEDS: Multivitamin Vitamin B Complex (Nephro-Vite) Tab PO SCH (08:41)
--- NOTE | 2017-01-05 09:13 | CP.PCM.PN ---
Subjective - Date & Time of Evaluation Date of Evaluation: 12/31/16 Time of Evaluation: 09:00 - Subjective Subjective: Patient continues to have some chest pain Discussed with Dr Fox Has no SOB. Objective - Vital Signs/Intake and Output Vital Signs (last 24 hours): Temp Pulse Resp BP Pulse Ox 98 F 72 18 168/64 H 100 01/05/17 08:00 01/05/17 08:52 01/05/17 08:00 01/05/17 08:52 01/05/17 08:00 - Medications Medications: Current Medications Acetaminophen (Tylenol 325mg Tab) 650 mg PO Q4 PRN PRN Reason: Fever >100.4 F Last Admin: 01/04/17 17:20 Dose: 650 mg Acetaminophen (Tylenol 325mg Tab) 650 mg PO Q4 PRN PRN Reason: Pain, Mild (1-3) Last Admin: 12/31/16 23:11 Dose: 650 mg Aspirin (Ecotrin) 81 mg PO DAILY [facility] Last Admin: 01/05/17 08:45 Dose: 81 mg Atorvastatin Calcium (Lipitor) 20 mg PO DAILY [facility] Last Admin: 01/05/17 08:44 Dose: 20 mg Bisacodyl (Dulcolax) 10 mg [place] HS PRN PRN Reason: Constipation Last Admin: 12/31/16 02:30 Dose: 10 mg Calcitriol (Rocaltrol) 0.25 mcg PO DAILY [facility] Last Admin: 01/05/17 08:44 Dose: 0.25 mcg Clonidine HCl (Catapres) 0.3 mg PO TID [facility] Last Admin: 01/05/17 08:52 Dose: 0.3 mg Docusate Sodium (Colace) 200 mg PO HS [facility] Last Admin: 01/04/17 21:53 Dose: Not Given Epoetin Chad (Procrit) 8,000 unit IV TTS [facility] Last Admin: 01/03/17 12:58 Dose: 8,000 unit Hydralazine HCl (Apresoline) 100 mg PO Q8H [facility] Last Admin: 01/05/17 08:45 Dose: 100 mg Insulin Human Lispro (Humalog) 0 units SC TTS@TID [facility] Last Admin: 01/05/17 08:37 Dose: 4 units Insulin Human Lispro (Humalog) 0 units SC MWF@[facility] Last Admin: 01/04/17 21:58 Dose: Not Given Insulin Human Lispro (Humalog) 0 units SC SUN@[facility] Last Admin: 01/01/17 22:00 Dose: 2 units Isosorbide Mononitrate (Imdur) 30 mg PO DAILY [facility] Last Admin: 01/04/17 08:52 Dose: 30 mg Lactulose (Enulose) 20 gm PO DAILY PRN PRN Reason: Constipation Last Admin: 01/04/17 21:56 Dose: 20 gm Losartan Potassium (Cozaar) 100 mg PO DAILY [facility] Metoprolol Tartrate (Lopressor) 25 mg PO Q12 [facility] Last Admin: 01/05/17 08:51 Dose: 25 mg Minoxidil (Minoxidil) 2.5 mg PO BID [facility] Valsartan (Diovan) 320 mg PO DAILY [facility] Last Admin: 01/04/17 14:33 Dose: 320 mg Vitamin B Complex/Vit C/Folic Acid (Nephro-Mary Kate) 1 tab PO DAILY [facility] Last Admin: 01/05/17 08:41 Dose: 1 tab - Labs Labs: 01/04/17 05:00 01/04/17 05:00 - Head Exam Head Exam: NORMAL INSPECTION - Eye Exam Eye Exam: Normal appearance - ENT Exam ENT Exam: Mucous Membranes Moist - Respiratory Exam Respiratory Exam: Clear to Ausculation Bilateral - Cardiovascular Exam Cardiovascular Exam: REGULAR RHYTHM - Neurological Exam Neurological Exam: Awake, Oriented x3 Assessment and Plan (1) Chest pain Status: Acute (2) ESRD (end stage renal disease) Status: Chronic (3) Type 2 diabetes mellitus with hyperglycemia Status: Acute (4) Uncontrolled hypertension Status: Acute - Assessment and Plan (Free Text) Plan: Cont meds Con ttx Cont PT adjust BP meds. cont HD
--- NOTE | 2017-01-05 09:15 | CP.PCM.PN ---
Subjective - Date & Time of Evaluation Date of Evaluation: 01/01/17 Time of Evaluation: 09:00 - Subjective Subjective: Patient still has increased BP not responding to current meds Has minimal chest pain Has no headaches Has no SOB. Objective - Vital Signs/Intake and Output Vital Signs (last 24 hours): Temp Pulse Resp BP Pulse Ox 98 F 72 18 168/64 H 100 01/05/17 08:00 01/05/17 08:52 01/05/17 08:00 01/05/17 08:52 01/05/17 08:00 - Medications Medications: Current Medications Acetaminophen (Tylenol 325mg Tab) 650 mg PO Q4 PRN PRN Reason: Fever >100.4 F Last Admin: 01/04/17 17:20 Dose: 650 mg Acetaminophen (Tylenol 325mg Tab) 650 mg PO Q4 PRN PRN Reason: Pain, Mild (1-3) Last Admin: 12/31/16 23:11 Dose: 650 mg Aspirin (Ecotrin) 81 mg PO DAILY [facility] Last Admin: 01/05/17 08:45 Dose: 81 mg Atorvastatin Calcium (Lipitor) 20 mg PO DAILY [facility] Last Admin: 01/05/17 08:44 Dose: 20 mg Bisacodyl (Dulcolax) 10 mg [place] HS PRN PRN Reason: Constipation Last Admin: 12/31/16 02:30 Dose: 10 mg Calcitriol (Rocaltrol) 0.25 mcg PO DAILY [facility] Last Admin: 01/05/17 08:44 Dose: 0.25 mcg Clonidine HCl (Catapres) 0.3 mg PO TID [facility] Last Admin: 01/05/17 08:52 Dose: 0.3 mg Docusate Sodium (Colace) 200 mg PO HS [facility] Last Admin: 01/04/17 21:53 Dose: Not Given Epoetin Chad (Procrit) 8,000 unit IV TTS [facility] Last Admin: 01/03/17 12:58 Dose: 8,000 unit Hydralazine HCl (Apresoline) 100 mg PO Q8H [facility] Last Admin: 01/05/17 08:45 Dose: 100 mg Insulin Human Lispro (Humalog) 0 units SC TTS@TID [facility] Last Admin: 01/05/17 08:37 Dose: 4 units Insulin Human Lispro (Humalog) 0 units SC MWF@ACHS [facility] Last Admin: 01/04/17 21:58 Dose: Not Given Insulin Human Lispro (Humalog) 0 units SC SUN@ACHS [facility] Last Admin: 01/01/17 22:00 Dose: 2 units Isosorbide Mononitrate (Imdur) 30 mg PO DAILY [facility] Last Admin: 01/04/17 08:52 Dose: 30 mg Lactulose (Enulose) 20 gm PO DAILY PRN PRN Reason: Constipation Last Admin: 01/04/17 21:56 Dose: 20 gm Losartan Potassium (Cozaar) 100 mg PO DAILY [facility] Metoprolol Tartrate (Lopressor) 25 mg PO Q12 [facility] Last Admin: 01/05/17 08:51 Dose: 25 mg Minoxidil (Minoxidil) 2.5 mg PO BID [facility] Valsartan (Diovan) 320 mg PO DAILY [facility] Last Admin: 01/04/17 14:33 Dose: 320 mg Vitamin B Complex/Vit C/Folic Acid (Nephro-Mary Kate) 1 tab PO DAILY [facility] Last Admin: 01/05/17 08:41 Dose: 1 tab - Labs Labs: 01/04/17 05:00 01/04/17 05:00 - Head Exam Head Exam: NORMAL INSPECTION - Eye Exam Eye Exam: Normal appearance - ENT Exam ENT Exam: Mucous Membranes Moist - Respiratory Exam Respiratory Exam: Clear to Ausculation Bilateral - Cardiovascular Exam Cardiovascular Exam: REGULAR RHYTHM - Neurological Exam Neurological Exam: Awake, Oriented x3 Assessment and Plan (1) Chest pain Status: Acute (2) ESRD (end stage renal disease) Status: Chronic (3) Type 2 diabetes mellitus with hyperglycemia Status: Acute (4) Uncontrolled hypertension Status: Acute - Assessment and Plan (Free Text) Plan: Cont meds Cont tx Cont HD adjust BP meds add amlodipine increase valsartan increase hydralazine
--- NOTE | 2017-01-05 09:17 | CP.PCM.PN ---
Subjective - Date & Time of Evaluation Date of Evaluation: 01/02/17 Time of Evaluation: 10:00 - Subjective Subjective: Patient continues to have elevated BP but no chest pain or headaches Has no SOB Has good sleep and appetite. Objective - Vital Signs/Intake and Output Vital Signs (last 24 hours): Temp Pulse Resp BP Pulse Ox 98 F 72 18 168/64 H 100 01/05/17 08:00 01/05/17 08:52 01/05/17 08:00 01/05/17 08:52 01/05/17 08:00 - Medications Medications: Current Medications Acetaminophen (Tylenol 325mg Tab) 650 mg PO Q4 PRN PRN Reason: Fever >100.4 F Last Admin: 01/04/17 17:20 Dose: 650 mg Acetaminophen (Tylenol 325mg Tab) 650 mg PO Q4 PRN PRN Reason: Pain, Mild (1-3) Last Admin: 12/31/16 23:11 Dose: 650 mg Aspirin (Ecotrin) 81 mg PO DAILY [facility] Last Admin: 01/05/17 08:45 Dose: 81 mg Atorvastatin Calcium (Lipitor) 20 mg PO DAILY [facility] Last Admin: 01/05/17 08:44 Dose: 20 mg Bisacodyl (Dulcolax) 10 mg [place] HS PRN PRN Reason: Constipation Last Admin: 12/31/16 02:30 Dose: 10 mg Calcitriol (Rocaltrol) 0.25 mcg PO DAILY [facility] Last Admin: 01/05/17 08:44 Dose: 0.25 mcg Clonidine HCl (Catapres) 0.3 mg PO TID [facility] Last Admin: 01/05/17 08:52 Dose: 0.3 mg Docusate Sodium (Colace) 200 mg PO HS [facility] Last Admin: 01/04/17 21:53 Dose: Not Given Epoetin Chad (Procrit) 8,000 unit IV TTS [facility] Last Admin: 01/03/17 12:58 Dose: 8,000 unit Hydralazine HCl (Apresoline) 100 mg PO Q8H [facility] Last Admin: 01/05/17 08:45 Dose: 100 mg Insulin Human Lispro (Humalog) 0 units SC TTS@TID [facility] Last Admin: 01/05/17 08:37 Dose: 4 units Insulin Human Lispro (Humalog) 0 units SC MWF@ACHS [facility] Last Admin: 01/04/17 21:58 Dose: Not Given Insulin Human Lispro (Humalog) 0 units SC SUN@ACHS [facility] Last Admin: 01/01/17 22:00 Dose: 2 units Isosorbide Mononitrate (Imdur) 30 mg PO DAILY [facility] Last Admin: 01/04/17 08:52 Dose: 30 mg Lactulose (Enulose) 20 gm PO DAILY PRN PRN Reason: Constipation Last Admin: 01/04/17 21:56 Dose: 20 gm Losartan Potassium (Cozaar) 100 mg PO DAILY [facility] Metoprolol Tartrate (Lopressor) 25 mg PO Q12 [facility] Last Admin: 01/05/17 08:51 Dose: 25 mg Minoxidil (Minoxidil) 2.5 mg PO BID [facility] Valsartan (Diovan) 320 mg PO DAILY [facility] Last Admin: 01/04/17 14:33 Dose: 320 mg Vitamin B Complex/Vit C/Folic Acid (Nephro-Mary Kate) 1 tab PO DAILY [facility] Last Admin: 01/05/17 08:41 Dose: 1 tab - Labs Labs: 01/04/17 05:00 01/04/17 05:00 - Head Exam Head Exam: NORMAL INSPECTION - Eye Exam Eye Exam: Normal appearance - ENT Exam ENT Exam: Mucous Membranes Moist - Respiratory Exam Respiratory Exam: NORMAL BREATHING PATTERN - Cardiovascular Exam Cardiovascular Exam: REGULAR RHYTHM - GI/Abdominal Exam GI & Abdominal Exam: Normal Bowel Sounds - Neurological Exam Neurological Exam: Awake, Oriented x3 Assessment and Plan (1) Chest pain Status: Acute (2) ESRD (end stage renal disease) Status: Chronic (3) Type 2 diabetes mellitus with hyperglycemia Status: Acute (4) Uncontrolled hypertension Status: Acute - Assessment and Plan (Free Text) Plan: Cont meds Cont tx adjust BP meds will add minoxidil if persistently high discussed with nephro
--- NOTE | 2017-01-05 09:18 | CP.PCM.PN ---
Subjective - Date & Time of Evaluation Date of Evaluation: 01/03/17 Time of Evaluation: 10:00 - Subjective Subjective: Patient is much better but continues to have fluctuating BP at times Bp goes up to 190 to 200 systolic Has no chest pain or headaches. Objective - Vital Signs/Intake and Output Vital Signs (last 24 hours): Temp Pulse Resp BP Pulse Ox 98 F 72 18 168/64 H 100 01/05/17 08:00 01/05/17 08:52 01/05/17 08:00 01/05/17 08:52 01/05/17 08:00 - Medications Medications: Current Medications Acetaminophen (Tylenol 325mg Tab) 650 mg PO Q4 PRN PRN Reason: Fever >100.4 F Last Admin: 01/04/17 17:20 Dose: 650 mg Acetaminophen (Tylenol 325mg Tab) 650 mg PO Q4 PRN PRN Reason: Pain, Mild (1-3) Last Admin: 12/31/16 23:11 Dose: 650 mg Aspirin (Ecotrin) 81 mg PO DAILY [facility] Last Admin: 01/05/17 08:45 Dose: 81 mg Atorvastatin Calcium (Lipitor) 20 mg PO DAILY [facility] Last Admin: 01/05/17 08:44 Dose: 20 mg Bisacodyl (Dulcolax) 10 mg [place] HS PRN PRN Reason: Constipation Last Admin: 12/31/16 02:30 Dose: 10 mg Calcitriol (Rocaltrol) 0.25 mcg PO DAILY [facility] Last Admin: 01/05/17 08:44 Dose: 0.25 mcg Clonidine HCl (Catapres) 0.3 mg PO TID [facility] Last Admin: 01/05/17 08:52 Dose: 0.3 mg Docusate Sodium (Colace) 200 mg PO HS [facility] Last Admin: 01/04/17 21:53 Dose: Not Given Epoetin Chad (Procrit) 8,000 unit IV TTS [facility] Last Admin: 01/03/17 12:58 Dose: 8,000 unit Hydralazine HCl (Apresoline) 100 mg PO Q8H [facility] Last Admin: 01/05/17 08:45 Dose: 100 mg Insulin Human Lispro (Humalog) 0 units SC TTS@TID [facility] Last Admin: 01/05/17 08:37 Dose: 4 units Insulin Human Lispro (Humalog) 0 units SC MWF@ACHS [facility] Last Admin: 01/04/17 21:58 Dose: Not Given Insulin Human Lispro (Humalog) 0 units SC SUN@[facility] Last Admin: 01/01/17 22:00 Dose: 2 units Isosorbide Mononitrate (Imdur) 30 mg PO DAILY [facility] Last Admin: 01/04/17 08:52 Dose: 30 mg Lactulose (Enulose) 20 gm PO DAILY PRN PRN Reason: Constipation Last Admin: 01/04/17 21:56 Dose: 20 gm Losartan Potassium (Cozaar) 100 mg PO DAILY [facility] Metoprolol Tartrate (Lopressor) 25 mg PO Q12 [facility] Last Admin: 01/05/17 08:51 Dose: 25 mg Minoxidil (Minoxidil) 2.5 mg PO BID [facility] Valsartan (Diovan) 320 mg PO DAILY [facility] Last Admin: 01/04/17 14:33 Dose: 320 mg Vitamin B Complex/Vit C/Folic Acid (Nephro-Mary Kate) 1 tab PO DAILY [facility] Last Admin: 01/05/17 08:41 Dose: 1 tab - Labs Labs: 01/04/17 05:00 01/04/17 05:00 - Head Exam Head Exam: NORMAL INSPECTION - Eye Exam Eye Exam: Normal appearance - ENT Exam ENT Exam: Mucous Membranes Moist - Cardiovascular Exam Cardiovascular Exam: REGULAR RHYTHM - GI/Abdominal Exam GI & Abdominal Exam: Normal Bowel Sounds - Neurological Exam Neurological Exam: Awake, Oriented x3 - Psychiatric Exam Psychiatric exam: Normal Mood Assessment and Plan (1) Chest pain Status: Acute (2) ESRD (end stage renal disease) Status: Chronic (3) Type 2 diabetes mellitus with hyperglycemia Status: Acute (4) Uncontrolled hypertension Status: Acute - Assessment and Plan (Free Text) Plan: Cont meds Cont tx Cont PT add minoxidil
--- NOTE | 2017-01-05 09:20 | CP.PCM.HP ---
History of Present Illness - History of Present Illness History of Present Illness: This is a 56 y/o male with hx of ESRD DM 2 accelerated HTN , CVA 6 months ago , who was transferred from [facility] for chest pain. The troponin was slightly elevated on admission His Bp was noted to be very elevated. He denies any headaches or SOB. Present on Admission - Present on Admission Any Indicators Present on Admission: No History of DVT/PE: No History of Uncontrolled Diabetes: Yes Urinary Catheter: No Decubitus Ulcer Present: No Past Patient History - Infectious Disease Hx of Infectious Diseases: None - Tetanus Immunizations Tetanus Immunization: Unknown - Past Medical History & Family History Past Medical History?: Yes - Past Social History Smoking Status: Former Smoker - CARDIAC Hx Cardiac Disorders: Yes Hx Congestive Heart Failure: No Hx Hypercholesterolemia: No Hx Hypertension: Yes - PULMONARY Hx Respiratory Disorders: Yes Hx Chronic Obstructive Pulmonary Disease (COPD): No Hx Pneumonia: Yes - NEUROLOGICAL Hx Neurological Disorder: Yes HX Cerebrovascular Accident: Yes (june 2016) - HEENT Hx HEENT Problems: Yes - RENAL Hx Chronic Kidney Disease: Yes Hx Dialysis: Yes Type of Dialysis Access: right AV Date of Last Dialysis Treatment: 12/29/16 Hx Renal Failure: Yes - ENDOCRINE/METABOLIC Hx Endocrine Disorders: Yes Hx Diabetes Mellitus Type 1: Yes Hx Hypothyroidism: No - HEMATOLOGICAL/ONCOLOGICAL Hx Blood Disorders: No Hx Human Immunodeficiency Virus (HIV): No - INTEGUMENTARY Hx Dermatological Problems: No - MUSCULOSKELETAL/RHEUMATOLOGICAL Hx Musculoskeletal Disorders: No Hx Arthritis: No Hx Falls: No - GASTROINTESTINAL Hx Gastrointestinal Disorders: Yes Hx Gastritis: Yes - GENITOURINARY/GYNECOLOGICAL Hx Genitourinary Disorders: No - PSYCHIATRIC Hx Psychophysiologic Disorder: Yes Hx Schizophrenia: Yes Hx Substance Use: No - SURGICAL HISTORY Hx Surgeries: Yes Hx Eye Surgery: Yes (Glaucoma) Other/Comment: Bilateral eyes surgery for glaucoma and cataracts, right arm AV Shunt - ANESTHESIA Hx Anesthesia: Yes Hx Anesthesia Reactions: Yes (Vomiting) Hx Malignant Hyperthermia: No Has any member of the family had a problem w/ anesthesia?: No Meds Allergies/Adverse Reactions: Allergies Allergy/AdvReac Type Severity Reaction Status Date / Time azithromycin [From Zithromax] Allergy RASH Verified 12/29/16 19:41 tamsulosin [From Flomax] Allergy RASH Verified 12/29/16 15:05 Physical Exam - Head Exam Head Exam: NORMAL INSPECTION - Eye Exam Eye Exam: Normal appearance - Respiratory Exam Respiratory Exam: Clear to Auscultation Bilateral, NORMAL BREATHING PATTERN - Cardiovascular Exam Cardiovascular Exam: REGULAR RHYTHM - GI/Abdominal Exam GI & Abdominal Exam: Normal Bowel Sounds - Neurological Exam Neurological exam: CN II-XII Intact, Oriented x3 Results - Vital Signs Recent Vital Signs: Last Vital Signs Temp 98 F 01/05/17 08:00 Pulse 72 01/05/17 08:52 Resp 18 01/05/17 08:00 BP 168/64 H 01/05/17 08:52 Pulse Ox 100 01/05/17 08:00 - Labs Result Diagrams: 01/04/17 05:00 01/04/17 05:00 Labs: Laboratory Results - last 24 hr 01/04/17 01/04/17 01/04/17 11:08 16:53 21:40 POC Glucose (mg/dL) 316 H 144 H 142 H 01/05/17 05:43 POC Glucose (mg/dL) 248 H Assessment & Plan (1) Chest pain Status: Acute (2) ESRD (end stage renal disease) Status: Chronic Priority: High (3) Type 2 diabetes mellitus with hyperglycemia Status: Acute (4) Uncontrolled hypertension Status: Acute - Assessment and Plan (Free Text) Plan: monitor troponin renal and cardiology eval low salt diet Bp meds adjust meds check ECHO and get copies of recent hospitalization for CVA
--- NOTE | 2017-01-05 09:48 | CP.PCM.PN ---
Subjective - Date & Time of Evaluation Date of Evaluation: 01/05/17 Time of Evaluation: 09:00 - Subjective Subjective: pt seen and examined at bedside this morning. No acute events overnight. Sitting up in bed comfortably, NAD. Reports feeling better overall. Does not complain of chest pain today and reports being able to sleep better last night. Blood pressures dropped to 127/61 after dosage of 2.5mg Minoxidil. No new complaints. Denies fever/chills, headaches, CP/SOB/JACQUES/palpitations, N/V/D/C, urinary symptoms, numbness/tingling. Objective - Vital Signs/Intake and Output Vital Signs (last 24 hours): Temp Pulse Resp BP Pulse Ox 98 F 72 18 168/64 H 100 01/05/17 08:00 01/05/17 08:52 01/05/17 08:00 01/05/17 08:52 01/05/17 08:00 - Medications Medications: Current Medications Acetaminophen (Tylenol 325mg Tab) 650 mg PO Q4 PRN PRN Reason: Fever >100.4 F Last Admin: 01/04/17 17:20 Dose: 650 mg Acetaminophen (Tylenol 325mg Tab) 650 mg PO Q4 PRN PRN Reason: Pain, Mild (1-3) Last Admin: 12/31/16 23:11 Dose: 650 mg Aspirin (Ecotrin) 81 mg PO DAILY [facility] Last Admin: 01/05/17 08:45 Dose: 81 mg Atorvastatin Calcium (Lipitor) 20 mg PO DAILY [facility] Last Admin: 01/05/17 08:44 Dose: 20 mg Bisacodyl (Dulcolax) 10 mg [place] HS PRN PRN Reason: Constipation Last Admin: 12/31/16 02:30 Dose: 10 mg Calcitriol (Rocaltrol) 0.25 mcg PO DAILY [facility] Last Admin: 01/05/17 08:44 Dose: 0.25 mcg Clonidine HCl (Catapres) 0.3 mg PO TID [facility] Last Admin: 01/05/17 08:52 Dose: 0.3 mg Docusate Sodium (Colace) 200 mg PO HS [facility] Last Admin: 01/04/17 21:53 Dose: Not Given Epoetin Chad (Procrit) 8,000 unit IV TTS [facility] Last Admin: 01/03/17 12:58 Dose: 8,000 unit Hydralazine HCl (Apresoline) 100 mg PO Q8H [facility] Last Admin: 01/05/17 08:45 Dose: 100 mg Insulin Human Lispro (Humalog) 0 units SC TTS@TID [facility] Last Admin: 01/05/17 08:37 Dose: 4 units Insulin Human Lispro (Humalog) 0 units SC MWF@[facility] Last Admin: 01/04/17 21:58 Dose: Not Given Insulin Human Lispro (Humalog) 0 units SC SUN@[facility] Last Admin: 01/01/17 22:00 Dose: 2 units Isosorbide Mononitrate (Imdur) 30 mg PO DAILY [facility] Last Admin: 01/04/17 08:52 Dose: 30 mg Lactulose (Enulose) 20 gm PO DAILY PRN PRN Reason: Constipation Last Admin: 01/04/17 21:56 Dose: 20 gm Losartan Potassium (Cozaar) 100 mg PO DAILY [facility] Metoprolol Tartrate (Lopressor) 25 mg PO Q12 [facility] Last Admin: 01/05/17 08:51 Dose: 25 mg Minoxidil (Minoxidil) 2.5 mg PO BID [facility] Last Admin: 01/05/17 09:31 Dose: Not Given Valsartan (Diovan) 320 mg PO DAILY [facility] Last Admin: 01/04/17 14:33 Dose: 320 mg Vitamin B Complex/Vit C/Folic Acid (Nephro-Mary Kate) 1 tab PO DAILY [facility] Last Admin: 01/05/17 08:41 Dose: 1 tab - Labs Labs: 01/04/17 05:00 01/04/17 05:00 - Constitutional Appears: Non-toxic, No Acute Distress - ENT Exam ENT Exam: Mucous Membranes Moist - Respiratory Exam Respiratory Exam: Clear to Ausculation Bilateral, NORMAL BREATHING PATTERN. absent: Rales, Rhonchi, Wheezes - Cardiovascular Exam Cardiovascular Exam: REGULAR RHYTHM, RRR, +S1, +S2, Murmur. absent: JVD - GI/Abdominal Exam GI & Abdominal Exam: Soft, Normal Bowel Sounds. absent: Distended, Firm, Guarding, Tenderness - Extremities Exam Extremities Exam: Normal Inspection. absent: Calf Tenderness, Pedal Edema - Neurological Exam Neurological Exam: Alert, Awake, Oriented x3 Assessment and Plan - Assessment and Plan (Free Text) Assessment: 56 y/o legally blind male with a PMHx of ESRD, DMII, and uncontrolled HTN admitted for evaluation of atypical chest pain. Plan: 1) Chest pain -resolved, noncardiac/noninfectious etiology -once BP is controlled and pt is s/p dialysis, likely transfer to nursing facility later today 2) Uncontrolled HTN -started on Minoxidil 2.5mg QD, worked for half the day, will switch to Minoxidil 2.5mg BID and monitor BPs 3) Diabetes Mellitus Type II with hyperglycemia -updated sliding scale to 3, 6, 9, 12 for tighter glycemic control 4) ESRD -for dialysis today
--- NOTE | 2017-01-05 10:33 | CP.PCM.PN ---
Subjective - Date & Time of Evaluation Date of Evaluation: 01/05/17 Time of Evaluation: 10:30 - Subjective Subjective: Patient sitting up in the chair No overnight event reported Chest pain no shortness of breath Objective - Vital Signs/Intake and Output Vital Signs (last 24 hours): Temp Pulse Resp BP Pulse Ox 98 F 72 18 168/64 H 100 01/05/17 08:00 01/05/17 08:52 01/05/17 08:00 01/05/17 08:52 01/05/17 08:00 - Medications Medications: Current Medications Acetaminophen (Tylenol 325mg Tab) 650 mg PO Q4 PRN PRN Reason: Fever >100.4 F Last Admin: 01/04/17 17:20 Dose: 650 mg Acetaminophen (Tylenol 325mg Tab) 650 mg PO Q4 PRN PRN Reason: Pain, Mild (1-3) Last Admin: 12/31/16 23:11 Dose: 650 mg Aspirin (Ecotrin) 81 mg PO DAILY [facility] Last Admin: 01/05/17 08:45 Dose: 81 mg Atorvastatin Calcium (Lipitor) 20 mg PO DAILY [facility] Last Admin: 01/05/17 08:44 Dose: 20 mg Bisacodyl (Dulcolax) 10 mg [place] HS PRN PRN Reason: Constipation Last Admin: 12/31/16 02:30 Dose: 10 mg Calcitriol (Rocaltrol) 0.25 mcg PO DAILY [facility] Last Admin: 01/05/17 08:44 Dose: 0.25 mcg Clonidine HCl (Catapres) 0.3 mg PO TID [facility] Last Admin: 01/05/17 08:52 Dose: 0.3 mg Docusate Sodium (Colace) 200 mg PO HS [facility] Last Admin: 01/04/17 21:53 Dose: Not Given Epoetin Chad (Procrit) 8,000 unit IV TTS [facility] Last Admin: 01/03/17 12:58 Dose: 8,000 unit Hydralazine HCl (Apresoline) 100 mg PO Q8H [facility] Last Admin: 01/05/17 08:45 Dose: 100 mg Insulin Human Lispro (Humalog) 0 units SC TTS@TID [facility] Last Admin: 01/05/17 08:37 Dose: 4 units Insulin Human Lispro (Humalog) 0 units SC MWF@ACHS [facility] Last Admin: 01/04/17 21:58 Dose: Not Given Insulin Human Lispro (Humalog) 0 units [place] SUN@[facility] Last Admin: 01/01/17 22:00 Dose: 2 units Isosorbide Mononitrate (Imdur) 30 mg PO DAILY [facility] Last Admin: 01/04/17 08:52 Dose: 30 mg Lactulose (Enulose) 20 gm PO DAILY PRN PRN Reason: Constipation Last Admin: 01/04/17 21:56 Dose: 20 gm Losartan Potassium (Cozaar) 100 mg PO DAILY [facility] Metoprolol Tartrate (Lopressor) 25 mg PO Q12 [facility] Last Admin: 01/05/17 08:51 Dose: 25 mg Minoxidil (Minoxidil) 2.5 mg PO BID [facility] Last Admin: 01/05/17 09:31 Dose: Not Given Valsartan (Diovan) 320 mg PO DAILY [facility] Last Admin: 01/04/17 14:33 Dose: 320 mg Vitamin B Complex/Vit C/Folic Acid (Nephro-Mary Kate) 1 tab PO DAILY [facility] Last Admin: 01/05/17 08:41 Dose: 1 tab - Labs Labs: 01/04/17 05:00 01/04/17 05:00 - Constitutional Appears: No Acute Distress - ENT Exam ENT Exam: Mucous Membranes Moist - Respiratory Exam Respiratory Exam: absent: Chest Wall Tenderness - Cardiovascular Exam Cardiovascular Exam: REGULAR RHYTHM. absent: Rubs - Extremities Exam Extremities Exam: absent: Calf Tenderness, Pedal Edema - Back Exam Back Exam: absent: CVA tenderness (L), CVA tenderness (R) - Neurological Exam Neurological Exam: Alert Assessment and Plan (1) Chest pain Status: Acute (2) ESRD (end stage renal disease) Assessment & Plan: End stage renal disease with high blood pressure patient to receive dialysis now as scheduled Ultrafiltration about 2500 mL as tolerated Potassium bath 2 mEq Sodium 138 Calcium 2.5 Bicarbonate bath 34 Continue hemodialysis patient is scheduled to be discharged for subacute unit as outpatient And to have dialysis as outpatient at [facility] dialysis unit Status: Chronic
[2017-01-05] MEDS ORDERED: Insulin Lispro (humaLOG) 100 Units/ml Inj SC STA (11:18)
[2017-01-05] MEDS: EPOETIN ALFA 10,000 UNIT/ML ML IV SCH (11:32)
[2017-01-05] MEDS: Oxycodone/Acetaminophen 5/325 mg Tab PO PRN ×2 (13:01→17:33)
[2017-01-05] MEDS ORDERED: Morphine 4 MG/ML VIAL IVP ONE (14:12)
[2017-01-05 20:04] VITALS: BP 130/63; PULSE 73; RESP 20; TEMP 98.1; O2SAT 99
== END 2017-01-05 21:15 | DRG 313 ==
LOC: H.ER 15:01 → H.ERHOLD 18:03 → H.TEL 21:29 → OBSVTOIN 12-30 10:41
PROVIDERS: ADMIT Family Medicine; ATTEND Family Medicine
PROC: 30233N1 Transfusion of Nonautologous Red Blood Cells into Peripheral Vein, Percutaneous Approach (ICD-10-PCS; 2016-12-31)
PROC: 5A1D60Z (ICD-10-PCS; principal; 2017-01-02)
DX: R07.89 Other chest pain (principal); I25.10 Atherosclerotic heart disease of native coronary artery without angina pectoris; E11.22 Type 2 diabetes mellitus with diabetic chronic kidney disease; N25.81 Secondary hyperparathyroidism of renal origin; N18.6 End stage renal disease; I12.0 Hypertensive chronic kidney disease with stage 5 chronic kidney disease or end stage renal disease; I69.351 Hemiplegia and hemiparesis following cerebral infarction affecting right dominant side; D63.1 Anemia in chronic kidney disease; E11.65 Type 2 diabetes mellitus with hyperglycemia; E11.40 Type 2 diabetes mellitus with diabetic neuropathy, unspecified; E11.319 Type 2 diabetes mellitus with unspecified diabetic retinopathy without macular edema; E78.5 Hyperlipidemia, unspecified; K29.70 Gastritis, unspecified, without bleeding; Z99.2 Dependence on renal dialysis; H54.8 Legal blindness, as defined in USA; E83.39 Other disorders of phosphorus metabolism; Z79.4 Long term (current) use of insulin; Z79.82 Long term (current) use of aspirin; Z88.1 Allergy status to other antibiotic agents; Z87.891 Personal history of nicotine dependence; Z87.01 Personal history of pneumonia (recurrent); F20.9 Schizophrenia, unspecified